=== PATIENT | female | born 1950 | race Caucasian/White ===

== ENCOUNTER 2018-07-12 20:07 | Inpatient (IN) ==
--- NOTE | 2018-07-12 20:25 | ED ---
HPI General Chief Complaint: Extremity Injury, Lower Stated Complaint: Fall Time Seen by Provider: 07/12/18 20:15 Source: patient Mode of arrival: EMS Limitations: no limitations History of Present Illness HPI Narrative: patient had a trip and fall and ended up hitting front of her face without loc, and twisted her right thigh about and since then has had severe pain to her right thigh/hip area. no open cuts. denied loc, no nv, no visual changes..... Major area of pain in his right thigh/right hip. However also complains of pain to her left shoulder as well as her facial/nasal area No known drug allergy however she patient has adverse effect of tachycardia whenever she receives Dilaudid Past medical history significant for hypercholesterolemia depression hypertension COPD on 2-3 L nasal cannula daily Coronary artery stent and IN MD complaint: Reports fall Onset (ago): minute(s) Fall from: standing Fall witnessed: no Place fall occurred: home Loss of consciousness: none Prolonged down time: no Symptoms prior to fall: Reports none Context: Reports tripped/slipped Location of injury: Reports other (greatest pain over right ) Severity scale (1-10): 7 Quality: Reports sharp Associated symptoms (after fall): Reports denies Related Data Allergies Allergy/AdvReac Type Severity Reaction Status Date / Time hydromorphone [From Dilaudid] AdvReac Tachycardia Verified 07/12/18 20:30 Review of Systems ROS: all other systems reviewed are negative PMFSH History History Provided By: Patient Medical History Medical History COPD (chronic obstructive pulmonary disease) (Acute) Depression (Acute) Hypercholesterolemia (Acute) Hypertension (Acute) Myocardial infarction (Acute) Osteoarthritis (Acute) Surgical History Surgical History History of coronary artery stent placement (Acute) Social History Social History Substance History: No History of Abuse Second Hand Smoke Exposure: Yes Smoking Status: Heavy tobacco smoker Tobacco Type: Cigarettes How Often Do You Have a Drink Containing Alcohol: Never Recent Travel in [place] within the Last 8 Weeks: No Recent Out of Country Travel within the Last 8 Weeks: No Exam Narrative Exam Narrative: GENERAL: Obese female patient in moderate pain distress. SKIN: Warm and dry. HEAD: Atraumatic. Normocephalic. EYES: Pupils equal and round. No scleral icterus. No injection or drainage. ENT: No nasal bleeding or discharge. Mucous membranes pink and moist. NECK: Trachea midline. No JVD. CARDIOVASCULAR: Regular rate and rhythm. no rubs or gallops RESPIRATORY: No accessory muscle use. Clear to auscultation. Breath sounds equal bilaterally. GASTROINTESTINAL: Abdomen soft, non-tender, nondistended. No rebound or guarding MUSCULOSKELETAL: Extremities without clubbing, cyanosis, or edema. However the patient has exquisite pain to proximal femur near trochanter. Distal pulses on dorsalis pedis, popliteal and posterior tibial are all within normal limits NEUROLOGICAL: Awake and alert. No obvious cranial nerve deficits. Motor grossly within normal limits. Five out of 5 muscle strength in the arms and legs. Normal speech. PSYCHIATRIC: Appropriate mood and affect; insight and judgment normal. Course Initial Documented Vital Signs Temperature 97.8 F 07/12/18 20:14 Pulse Rate 67 07/12/18 20:14 Respiratory Rate 18 07/12/18 20:14 Blood Pressure 201/93 H 07/12/18 20:14 Pulse Oximetry 93 L 07/12/18 20:14 Last Documented Vital Signs Temperature 97.8 F 07/12/18 20:14 Pulse Rate 67 07/12/18 20:14 Respiratory Rate 18 07/12/18 20:14 Blood Pressure 201/93 H 07/12/18 20:14 Pulse Oximetry 93 L 07/12/18 20:14 Medical Decision Making MDM Narrative Medical decision making narrative: Shoulder x-ray shows a 2 part fracture of the proximal left humerus Pelvis x-ray performed and read by radiologist as proximal right femoral fracture bony pelvic ring is intact Right femur x-ray read by radiologist a spiral and comminuted fracture of the proximal shaft of the femur and displaced fracture of the lesser trochanter Above findings discussed with patient as well as with orthopedics water pollution specialist Leukocytosis 18,000 with 90% neutrophilia, no evidence of any anemia, normal platelet count Coagulation profile is within normal limits Elect lites are within normal limits. Normal kidney liver functions Hyperglycemia 182 noted. Case discussed with orthopedist Dr. Laguna who recommended n.p.o. after midnight, Carreon's traction and left sling placement Medical Screen Exam Complete: Yes Emergency Medical Condition: Yes Lab Data Result diagrams: 07/12/18 21:35 07/12/18 21:35 Lab Results 07/12/18 07/12/18 07/12/18 Range/Units 21:35 21:35 21:35 WBC 18.1 H (4.0-11.0) th/mm3 RBC 4.78 (4.00-5.30) mil/mm3 Hgb 15.4 H (11.6-15.3) gm/dL Hct 41.8 (35.0-46.0) % MCV 87.6 (80.0-100.0) fL MCH 32.2 (27.0-34.0) pg MCHC 36.8 H (32.0-36.0) % RDW 13.8 (11.6-17.2) % Plt Count 241 (150-450) th/mm3 MPV 8.3 (7.0-11.0) fL Prelim Diff (Auto) Slide review pending Neut % (Auto) 90.4 H (16.0-70.0) % Lymph % (Auto) 5.1 L (9.0-44.0) % Becker % (Auto) 3.4 (0.0-8.0) % Eos % (Auto) 0.4 (0.0-4.0) % Baso % (Auto) 0.7 (0.0-2.0) % Neut # (Auto) 16.4 H (1.8-7.7) th/mm3 Lymph # (Auto) 0.9 L (1.0-4.8) th/mm3 Becker # (Auto) 0.6 (0.0-0.9) th/mm3 Eos # (Auto) 0.1 (0.0-0.4) th/mm3 Baso # (Auto) 0.1 (0.0-0.2) th/mm3 Differential Comment . PT 10.9 (9.8-11.6) sec INR 1.1 Ratio APTT 27.5 (23.4-31.7) sec Sodium 136 (136-145) meq/L Potassium 4.0 (3.5-5.1) meq/L Chloride 102 (98-107) meq/L Carbon Dioxide 27.4 (21.0-32.0) meq/L Anion Gap 7 (5-15) meq/L BUN 16 (7-18) mg/dL Creatinine 0.90 (0.50-1.00) mg/dL Estimated GFR 63 L (>89) mL/min Random Glucose 192 H (74-106) mg/dL Calcium 8.3 L (8.5-10.1) mg/dL Total Bilirubin 0.3 (0.2-1.0) mg/dL AST 17 (15-37) U/L ALT 19 (10-53) U/L Alkaline Phosphatase 136 H (45-117) U/L Total Protein 7.4 (6.4-8.2) g/dL Albumin 3.4 (3.4-5.0) g/dL Imaging Data Radiologist's impression: Femur X-Ray 07/12/18 20:15 CONCLUSION: Spiral and comminuted fracture of the proximal shaft of the femur and displaced fracture of the lesser trochanter. Pelvis X-Ray 07/12/18 20:15 CONCLUSION: Proximal right femoral fractures. The bony pelvic ring is intact. Shoulder X-Ray 07/12/18 20:15 CONCLUSION: 2-part fracture of the proximal left humerus. ECG Data EKG Prior to Arrival: No Attestation: I personally reviewed and interpreted this ECG as follows: Prior ECG tracings: not available for review Interpretation: Sinus rhythm 69 bpm, no evidence of any acute ST elevation IN pattern. Discharge Plan Physicians Team ED Provider: Rich Pugh Primary Care Provider: UNKNOWN, Status ED Status: With Doctor
--- NOTE | 2018-07-12 21:23 | XR ---
EXAM DATE: 07/12/2018 9:19 PM EST AGE/SEX: 67 years / Female INDICATIONS: Fall this afternoon. CLINICAL DATA: This is the patient's initial encounter. Patient reports that signs and symptoms have been present for 1 day and indicates a pain score of 10/10. MEDICAL/SURGICAL HISTORY: None. None. COMPARISON: No prior exams available for comparison. FINDINGS: There is a spiral fracture of the proximal shaft of the femur with one shaft width lateral displaceme nt of the distal fracture fragment. Possible associated butterfly fragment. There is also a displaced fracture of the lesser trochanter, displaced medial and superior. The femoral head and neck appear t o be intact. The bony acetabulum is intact. No radiopaque foreign bodies. CONCLUSION: Spiral and comminuted fracture of the proximal shaft of the femur and displaced fracture of the lesse r trochanter. Electronically signed by: Mervin Meadows MD Board Certified Radiologist 07/12/2018 9:22 PM EST
[2018-07-12] MEDS ORDERED: Morphine Sulfate Inj 8 MG/ML Vial IV.PUSH ONE (21:24)
--- NOTE | 2018-07-12 21:24 | XR ---
EXAM DATE: 07/12/2018 9:21 PM EST AGE/SEX: 67 years / Female INDICATIONS: Fall this afternoon. CLINICAL DATA: This is the patient's initial encounter. Patient reports that signs and symptoms have been present for 1 day and indicates a pain score of 10/10. MEDICAL/SURGICAL HISTORY: None. None. COMPARISON: No prior exams available for comparison. FINDINGS: Fractures of the proximal shaft of the femur is partially included in the [id number]. There is als o a displaced fracture of the lesser trochanter, rotated and displaced superiorly. The bony acetabulu m is intact. The left hemipelvis is intact. The arcuate lines of the sacrum or symmetric. CONCLUSION: Proximal right femoral fractures. The bony pelvic ring is intact. Electronically signed by: Mervin Meadows MD Board Certified Radiologist 07/12/2018 9:23 PM EST
--- NOTE | 2018-07-12 21:25 | XR ---
EXAM DATE: 07/12/2018 9:23 PM EST AGE/SEX: 67 years / Female INDICATIONS: Fall this afternoon. CLINICAL DATA: This is the patient's initial encounter. Patient reports that signs and symptoms have been present for 1 day and indicates a pain score of 10/10. MEDICAL/SURGICAL HISTORY: None. None. COMPARISON: No prior exams available for comparison. FINDINGS: There is a proximal humeral fracture with displaced greater tuberosity and possible fracture line thr ough the anatomic neck. The bony acetabulum is intact. The humeral head is in alignment with the andreia oid on the transscapular Y view. AC joint is intact. Visualized left upper ribs are intact. CONCLUSION: 2-part fracture of the proximal left humerus. Electronically signed by: Mervin Meadows MD Board Certified Radiologist 07/12/2018 9:24 PM EST
[2018-07-12] MEDS ORDERED: Sod Chloride 0.9% Inj 1,000 ML IV.CONT SCH (21:30)
[2018-07-12 21:50] LABS: Baso # (Auto) 0.1 th/mm3 (0.0-0.2); Baso % (Auto) 0.7 % (0.0-2.0); Eos # (Auto) 0.1 th/mm3 (0.0-0.4); Eos % (Auto) 0.4 % (0.0-4.0); Hematocrit 41.8 % (35.0-46.0); Hemoglobin 15.4 gm/dL (11.6-15.3); Lymph # (Auto) 0.9 th/mm3 (1.0-4.8); Lymph % (Auto) 5.1 % (9.0-44.0); Mean Corpuscular Hemoglobin 32.2 pg (27.0-34.0); Mean Corpuscular Volume 87.6 fL (80.0-100.0); Mean Platelet Volume 8.3 fL (7.0-11.0); Mono # (Auto) 0.6 th/mm3 (0.0-0.9); Mono % (Auto) 3.4 % (0.0-8.0); Neut # (Auto) 16.4 th/mm3 (1.8-7.7); Neut % (Auto) 90.4 % (16.0-70.0); Platelet Count 241 th/mm3 (150-450); Red Blood Count 4.78 mil/mm3 (4.00-5.30); Red Cell Distribution Width 13.8 % (11.6-17.2); White Blood Count 18.1 th/mm3 (4.0-11.0)
[2018-07-12 21:55] LABS: Mean Corpuscular HGB Conc 36.8 % (32.0-36.0)
[2018-07-12 22:01] LABS: Activated Partial Thrombo Time 27.5 sec (23.4-31.7); INR 1.1 Ratio; Prothrombin Time 10.9 sec (9.8-11.6)
[2018-07-12 22:06] LABS: Albumin 3.4 g/dL (3.4-5.0); Anion Gap 7 meq/L (5-15); Aspartate Aminotransferase 17 U/L (15-37); Blood Urea Nitrogen 16 mg/dL (7-18); Calcium 8.3 mg/dL (8.5-10.1); Carbon Dioxide 27.4 meq/L (21.0-32.0); Chloride 102 meq/L (98-107); Glomerular Filtration Rate 63 mL/min (>89); Glucose,Random 192 mg/dL (74-106); Sodium 136 meq/L (136-145)
[2018-07-12 22:08] LABS: Alanine Aminotransferase 19 U/L (10-53)
[2018-07-12 22:10] LABS: Alkaline Phosphatase 136 U/L (45-117); Total Protein 7.4 g/dL (6.4-8.2)
[2018-07-12 22:38] LABS: Lymphocytes 2 % (9-44); Monocytes 2 % (0-8); Tallied Nucleated RBC 1 (0-0)
[2018-07-12 22:39] LABS: Platelet Estimate Normal (Normal); Platelet Morphology Normal (Normal); Toxic Granulation 1+
[2018-07-12] MEDS ORDERED: Bisacodyl 10 MG Supp RECTAL PRN (23:17)
[2018-07-12] MEDS ORDERED: Acetaminophen 325 MG Tablet PO PRN (23:17)
--- NOTE | 2018-07-12 23:28 | P.HPIM ---
History of Present Illness Primary Care Physician: UNKNOWN 67-year-old female with past medical history significant for coronary artery disease status post stent placement, hypertension, hyperlipidemia, COPD on 2 L nasal cannula as needed, history of lung cancer and osteoarthritis presents to the emergency department after suffering a mechanical fall. The patient reports that she slipped on 1 of her slippers and landed on the tile floor. She hit her nose but denies any other head trauma or loss of consciousness. She denies any chest pain or shortness of breath. No nausea/vomiting/diarrhea. No abdominal pain. No focal neurologic deficits. No fever/chills. Inpatient Certification Inpatient Certification: I certify that the inpatient services were ordered in accordance with Medicare regulations governing the order. This includes certification that hospital inpatient services are reasonable and necessary and in the case of services not specified as inpatient-only under 42 CFR 419.22(n), that they are appropriately provided as inpatient services in accordance to with the 2-midnight benchmark under 43 CFR 412.3(e) Estimated Total Length of Stay (Days): 3 Plans for Post Hospital Care: Not yet determined Review of Systems Review of Systems: all other systems reviewed are negative [facility] Medical History Medical History COPD (chronic obstructive pulmonary disease) (Acute) Depression (Acute) History of hysterectomy (Acute) Hypercholesterolemia (Acute) Hypertension (Acute) Myocardial infarction (Acute) Osteoarthritis (Acute) Surgical History Surgical History History of appendectomy (Acute) History of cholecystectomy (Acute) History of coronary artery stent placement (Acute) History of coronary artery stent placement (Acute) History of lobectomy of lung (Acute) Family History Family History Other CVA (cerebral vascular accident) Social History Social History Substance History: No History of Abuse Second Hand Smoke Exposure: Yes Smoking Status: Heavy tobacco smoker Tobacco Type: Cigarettes How Often Do You Have a Drink Containing Alcohol: Never Recent Travel in [facility] within the Last 8 Weeks: No Recent Out of Country Travel within the Last 8 Weeks: No Immunization History Tetanus Immunization: Unsure Medications and Allergies Allergies Allergy/AdvReac Type Severity Reaction Status Date / Time hydromorphone [From Dilaudid] AdvReac Tachycardia Verified 07/12/18 20:30 Active Medications: Active Medications Acetaminophen (Tylenol) 650 mg PO Q4H PRN PRN Reason: Temp > 100.4 Al Hydroxide/Mg Hydroxide (Milk Of Magnesia Liq) 30 ml PO Q12H PRN PRN Reason: Mild Constipation Bisacodyl (Dulcolax Supp) 10 mg RECTAL DAILY PRN PRN Reason: SEVERE CONSITIPATION Sodium Chloride (Ns Inj) 1,000 mls @ 125 mls/hr IV.CONT .Q8H JJ Stop: 07/13/18 05:29 Last Admin: 07/12/18 21:58 Dose: 125 mls/hr Sodium Chloride (Ns Inj) 1,000 mls @ 100 mls/hr IV.CONT .Q10H [facility] Lactulose (Lactulose Liq) 30 ml PO DAILY PRN PRN Reason: SEVERE CONSITIPATION Morphine Sulfate (Morphine Inj) 4 mg IV.PUSH Q4H PRN PRN Reason: PAIN SCALE 6 TO 10 Ondansetron HCl (Zofran Inj) 4 mg IV.PUSH Q6H PRN PRN Reason: NAUSEA OR VOMITING Senna/Docusate Sodium (Rocio-Colace) 1 tab PO BID [facility] Sennosides (Senokot) 17.2 mg PO Q12H PRN PRN Reason: Moderate Constipation Sodium Chloride (Ns Flush) 2 ml IV.FLUSH BID [facility] Sodium Chloride (Ns Flush) 2 ml IV.FLUSH PRN PRN PRN Reason: FLUSH AFTER USING IV ACCESS Physical Exam Vital signs: Vital Signs 07/12/18 20:14 Temperature 97.8 F Pulse Rate 67 Respiratory Rate 18 Blood Pressure 201/93 H Pulse Oximetry 93 L Intake & Output 07/12/18 07/12/18 07/13/18 06:59 18:59 06:59 Weight 127.006 kg Narrative: Gen.: No acute distress Head: Normocephalic. Atraumatic. EENT: Pupils equal round and reactive to light. Nose without drainage. Airway intact. Throat without injection. Cardiovascular: Regular rate and rhythm. No murmurs, rubs or gallops. Respiratory: Lungs clear to auscultation bilaterally. No wheezes or rhonchi. Abdomen: Soft, nontender, nondistended. No peritoneal signs. Musculoskeletal: Right lower extremity neurovascularly intact. Skin: No obvious rashes or erythema. Neuro: Sensory and motor grossly intact. Cranial nerves II through XII grossly intact. Results Labs CBC & Chem 7: 07/12/18 21:35 07/12/18 21:35 Imaging Impressions Femur X-Ray 07/12/18 20:15 CONCLUSION: Spiral and comminuted fracture of the proximal shaft of the femur and displaced fracture of the lesser trochanter. Pelvis X-Ray 07/12/18 20:15 CONCLUSION: Proximal right femoral fractures. The bony pelvic ring is intact. Shoulder X-Ray 07/12/18 20:15 CONCLUSION: 2-part fracture of the proximal left humerus. Caprini VTE Risk Assessment Caprini VTE Risk Assessment: Moderate/High Risk (score >= 2) Caprini Risk Assessment Model: Point Value = 1 Point Value = 2 Point Value = 3 Point Value = 5 Age 41-60 Minor surgery BMI > 25 kg/m2 Swollen legs Varicose veins or History of unexplained or recurrent spontaneous Oral contraceptives or hormone replacement Sepsis (< 1 month) Serious lung disease, including pneumonia (< 1 month) Abnormal pulmonary function Acute myocardial infarction Congestive heart failure (< 1 month) History of inflammatory bowel disease Medical patient at bed rest Age 61-74 Arthroscopic surgery Major open surgery (> 45 min) Laparoscopic surgery (> 45 min) Malignancy Confined to bed (> 72 hours) Immobilizing plaster cast Central venous access Age >= 75 History of VTE Family history of VTE Factor V Leiden Prothrombin [id number] Lupus anticoagulant Anticardiolipin antibodies Elevated serum homocysteine Heparin-induced thrombocytopenia Other congenital or acquired thrombophilia Stroke (< 1 month) Elective arthroplasty Hip, pelvis, or leg fracture Acute spinal cord injury (< 1 month) Prophylaxis Regimen: Total Risk Factor Score Risk Level Prophylaxis Regimen 0-1 Low Early ambulation 2 Moderate Order ONE of the following: *Sequential Compression Device (SCD) *Heparin 5000 units SQ BID 3-4 Higher Order ONE of the following medications: *Heparin 5000 units SQ TID *Enoxaparin/Lovenox 40 mg SQ daily (WT < 150 kg, CrCl > 30 mL/min) *Enoxaparin/Lovenox 30 mg SQ daily (WT < 150 kg, CrCl > 10-29 mL/min) *Enoxaparin/Lovenox 30 mg SQ BID (WT < 150 kg, CrCl > 30 mL/min) AND/OR *Sequential Compression Device (SCD) 5 or more Highest Order ONE of the following medications: *Heparin 5000 units SQ TID (Preferred with Epidurals) *Enoxaparin/Lovenox 40 mg SQ daily (WT < 150 kg, CrCl > 30 mL/min) *Enoxaparin/Lovenox 30 mg SQ daily (WT < 150 kg, CrCl > 10-29 mL/min) *Enoxaparin/Lovenox 30 mg SQ BID (WT < 150 kg, CrCl > 30 mL/min) AND *Sequential Compression Device (SCD) Assessment and Plan Plan Assessment/plan: 1. Femur/hip fracture X-ray significant for spiral and comminuted fracture of the proximal shaft of the femur and displaced fracture of the lesser trochanter Orthopedic surgery consulted, appreciate assistance 2. Left humerus fracture X-ray shows 2 part fracture of the proximal left humerus Orthopedic surgery consulted as above Morphine for pain 3. COPD Patient uses 2 L supplemental oxygen as needed at home Duo nebs Maintain oxygen saturations between 88-92% 4. Coronary artery diseasehypertension/hyperlipidemia Continue home medications once reconciled FEN N.p.o. NS at 100 cc/hour Electrolytes: Monitor and replete as needed Holding pharmacologic anticoagulation for operative intervention
--- NOTE | 2018-07-12 23:46 | CT ---
EXAM DATE: 07/12/2018 11:28 PM EST AGE/SEX: 67 years / Female INDICATIONS: Trauma; fall. CLINICAL DATA: This is the patient's initial encounter. Patient reports that signs and symptoms have been present for 1 day and indicates a pain score of 6/10. MEDICAL/SURGICAL HISTORY: None. None. RADIATION DOSE: 53.90 CTDI (mGy) COMPARISON: No prior exams available for comparison. TECHNIQUE: CT of the head without contrast. Using automated exposure control and adjustment of the mA and/or kV according to patient size, radiation dose was kept as low as reasonably achievable to ob tain optimal diagnostic quality images. DICOM format image data is available electronically for revi ew and comparison. FINDINGS: Patchy deep white matter hypodensity which appears chronic and benign. No evidence of intracranial he morrhage or mass. Nothing to suggest acute infarction. Ventricles are symmetric and normal. Nasal bon e fracture noted with some blood in the sinuses. No evidence of calvarial fracture. CONCLUSION: No acute intracranial injury . Electronically signed by: Alen Arredondo MD Board Certified Radiologist 07/12/2018 11:45 PM EST
--- NOTE | 2018-07-12 23:53 | CT ---
EXAM DATE: 07/12/2018 11:29 PM EST AGE/SEX: 67 years / Female INDICATIONS: Trauma; fall. Facial injury. CLINICAL DATA: This is the patient's initial encounter. Patient reports that signs and symptoms have been present for 1 day and indicates a pain score of 6/10. MEDICAL/SURGICAL HISTORY: None. None. RADIATION DOSE: 33.09 CTDI (mGy) COMPARISON: No prior exams available for comparison. TECHNIQUE: Contiguous images in the axial and coronal planes were obtained using helical multirow de tector technique. Using automated exposure control and adjustment of the mA and/or kV according to p atient size, radiation dose was kept as low as reasonably achievable to obtain optimal diagnostic zoran lity images. DICOM format image data is available electronically for review and comparison. FINDINGS: Mildly angulated fracture of the nasal bone. Slight buckling of the anterior nasal septum. Maxillary spine is intact. Orbits are symmetric and intact. Zygomatic arches are intact. The mandible and tempo romandibular joints are intact. There is blood in occasional ethmoid air cells and right sphenoid sin us. The mastoids and middle ear cavities are clear. CONCLUSION: Nasal bone and nasal septal fractures. Electronically signed by: Alen Arredondo MD Board Certified Radiologist 07/12/2018 11:52 PM EST
[2018-07-13] MEDS: Sod Chloride 0.9% Inj 1,000 ML IV.CONT SCH ×2 (00:51→10:05)
[2018-07-13] MEDS: Morphine Inj 4 MG/ML Vial IV.PUSH PRN ×2 (01:24→08:25)
[2018-07-13] MEDS ORDERED: Chlorhexidine Gluconate 2% 1 Pack (2 Cloths) TOPICAL ONE (01:43)
[2018-07-13] MEDS ORDERED: Sodium Chlor 0.9% Inj 500 ML IV.SIG SCH (02:00)
--- NOTE | 2018-07-13 07:24 | P.CONOP ---
[facility] Orthopedics Consult Note - [facility] Consult date: 07/13/18 Chief complaint: Proximal Right Femur Fracture, Left 2 Part Humeral Narrative: Patient is a 67-year-old female. She had a fall at home. She describes a mechanical fall. She landed on a tile floor. She did hit her face. She denies dizziness, syncope, or loss of consciousness. She complains of severe right hip pain. She also has left shoulder pain. She is currently awake and alert on the orthopedic floor. Pain is worse with movement of her shoulder or hip. Pain is improved with rest. She has a past medical history significant for coronary artery disease status post stent placement, hypertension, hyperlipidemia, COPD on 2 L oxygen, history of lung cancer and osteoarthritis. Review of Systems Patient denies fevers, chills, weight loss, headache, visual changes, hearing loss, chest pain, palpitations, nausea, vomiting, no urinary changes, diarrhea, bowel changes, neck pain, back pain, skin rashes, weakness of extremities, easy bleeding, enlarged lymph nodes, numbness of extremities, anxiety, or depression. She complains of left shoulder pain, right hip pain. She has chronic shortness of breath. Patient's social history, past medical history, and family history were reviewed on chart and with patient. [facility] - History History Provided By: Patient - Medical History Medical History: Medical History (Last Reviewed 07/13/18 @ 07:21 by Tate Segura MD) COPD (chronic obstructive pulmonary disease) Depression History of hysterectomy Hypercholesterolemia Hypertension Lung cancer Myocardial infarction Osteoarthritis - Surgical History Surgical History: Surgical History (Last Reviewed 07/13/18 @ 07:21 by Tate Segura MD) History of appendectomy History of cholecystectomy History of coronary artery stent placement History of coronary artery stent placement History of lobectomy of lung - Family History Family History: Family History (Last Reviewed 07/13/18 @ 07:21 by Tate Segura MD) Other CVA (cerebral vascular accident) - Social History I have reviewed the patient's Social History: Yes - Tobacco History Second Hand Smoke Exposure: Yes Tobacco Use In Past 30 Days: Yes Smoking Status: Current every day smoker Tobacco Type: Cigarettes - Alcohol History How Often Do You Have a Drink Containing Alcohol: Never - Substance Use History Substance History: No History of Abuse - Travel History Recent Travel in the [place] Within the Last 8 Weeks: No Recent Travel Out of the Country Within the Last 8 Weeks: No - Immunization History Tetanus Immunization: >5 Years Hx Influenza Vaccine This Season: Yes Medications and Allergies Active Medications: Active Medications Acetaminophen (Tylenol) 650 mg PO Q4H PRN PRN Reason: Temp > 100.4 Al Hydroxide/Mg Hydroxide (Milk Of Magnesia Liq) 30 ml PO Q12H PRN PRN Reason: Mild Constipation Albuterol (Duoneb Neb (Prn)) 1 ampul NEB Q4HR NEB PRN PRN Reason: SOB/Wheezing Bisacodyl (Dulcolax Supp) 10 mg RECTAL DAILY PRN PRN Reason: SEVERE CONSITIPATION Sodium Chloride (Ns Inj) 1,000 mls @ 100 mls/hr IV.CONT .Q10H [facility] Last Admin: 07/13/18 00:51 Dose: 100 mls/hr Lactated Ringer's (Lr 1000 Ml Inj) 1,000 mls @ 30 mls/hr IV.SIG .Q24H [facility] Stop: 07/14/18 01:44 Sodium Chloride (Ns Inj) 500 mls @ 30 mls/hr IV.SIG .Q10H [facility] Last Admin: 07/13/18 02:22 Dose: Not Given Lactulose (Lactulose Liq) 30 ml PO DAILY PRN PRN Reason: SEVERE CONSITIPATION Morphine Sulfate (Morphine Inj) 4 mg IV.PUSH Q4H PRN PRN Reason: PAIN SCALE 6 TO 10 Last Admin: 07/13/18 01:24 Dose: 4 mg Ondansetron HCl (Zofran Inj) 4 mg IV.PUSH Q6H PRN PRN Reason: NAUSEA OR VOMITING Last Admin: 07/13/18 01:24 Dose: 4 mg Senna/Docusate Sodium (Rocio-Colace) 1 tab PO BID [facility] Sennosides (Senokot) 17.2 mg PO Q12H PRN PRN Reason: Moderate Constipation Sodium Chloride (Ns Flush) 2 ml IV.FLUSH BID [facility] Sodium Chloride (Ns Flush) 2 ml IV.FLUSH PRN PRN PRN Reason: FLUSH AFTER USING IV ACCESS Allergies Allergy/AdvReac Type Severity Reaction Status Date / Time hydromorphone [From Dilaudid] AdvReac Tachycardia Verified 07/12/18 20:30 Home Medications Medication Instructions Recorded Confirmed Type albuterol sulfate 0.63 mg INHALATION QID 07/13/18 07/13/18 History aspirin 325 mg PO DAILY 07/13/18 07/13/18 History bupropion HCl [Wellbutrin XL] 300 mg PO HS 07/13/18 07/13/18 History fluoxetine [Prozac] 20 mg PO DAILY 07/13/18 07/13/18 History gabapentin 100 mg PO TID 07/13/18 07/13/18 History ibuprofen [Advil] 400 mg PO BID PRN 07/13/18 07/13/18 History Exam Vital signs: Vital Signs 07/12/18 20:14 07/12/18 23:51 07/13/18 00:50 Temperature 97.8 F 97.3 F L Pulse Rate 67 70 67 Respiratory Rate 18 18 18 Blood Pressure 201/93 H 146/78 H 173/74 H Pulse Oximetry 93 L 93 L 92 L 07/13/18 00:55 07/13/18 04:50 Temperature 98.0 F Pulse Rate 75 Respiratory Rate 18 Blood Pressure 116/60 Pulse Oximetry 92 L 92 L Intake & Output 07/12/18 07/13/18 07/13/18 18:59 06:59 18:59 Intake Total 1000 / 1000 Balance 1000 / 1000 Weight 127.1 kg Intake: IV 1000 / 1000 NS Inj 1,000 ML @ 125 mls/hr IV 1000 / 1000 .CONT .Q8H [facility] Rx#:[id number] Oral 0 / 0 Other: Date of Last Bowel Movement 07/12/18 # Bowel Movements 0 Weight On Admission 127.1 kg Narrative: Chelsi is a 67-year-old female. General: Awake and alert. No acute distress. Appears well-developed well- nourished Head: Normocephalic, atraumatic pupils are equal Neck: Soft, nontender, trachea midline Abdomen: Soft, nondistended Examination of right arm reveals no pain or deformity with shoulder, elbow, or wrist motion. Skin is intact. Radial pulse is palpable. Normal capillary refill in fingers. Sensation is intact in radial, ulnar, and median nerve distributions. [place] strength is +5. No lymphadenopathy noted. Examination of left arm reveals no pain or deformity with elbow, or wrist motion. She has mild swelling around her shoulder. She has pain with any shoulder motion. Skin is intact. Radial pulse is palpable. Normal capillary refill in fingers. Sensation is intact in radial, ulnar, and median nerve distributions. [place] strength is +5. No lymphadenopathy noted. Examination of left lower extremity reveals no pain or deformity with hip, knee , or ankle motion. Skin is intact. Dorsalis pedis pulse is palpable. Normal capillary refill and feet. Thigh and calf compartments are soft. No lymphadenopathy noted. +5 strength of ankle dorsiflexion and plantarflexion. Sensation is intact in left foot. Examination of right lower extremity reveals pain with any attempted hip or any movement. She is very tender to palpation around the proximal thigh. Skin is intact. Dorsalis pedis pulse is palpable. Normal capillary refill and feet. Thigh and calf compartments are soft. No lymphadenopathy noted. Sensation is intact in right foot. Results - Labs Result Diagrams: 07/12/18 21:35 07/12/18 21:35 Labs: Laboratory Results - last 24 hr 07/12/18 07/12/18 07/12/18 21:35 21:35 21:35 WBC 18.1 H RBC 4.78 Hgb 15.4 H Hct 41.8 MCV 87.6 MCH 32.2 MCHC 36.8 H RDW 13.8 Plt Count 241 MPV 8.3 Prelim Diff (Auto) Slide review pending Neut % (Auto) 90.4 H Lymph % (Auto) 5.1 L [place] % (Auto) 3.4 Eos % (Auto) 0.4 Baso % (Auto) 0.7 Neut # (Auto) 16.4 H Lymph # (Auto) 0.9 L [place] # (Auto) 0.6 Eos # (Auto) 0.1 Baso # (Auto) 0.1 WBC Differential Manual diff final Seg Neuts % (Manual) 91 H Band Neuts % (Manual) 4 Lymphocytes % (Manual) 2 L Monocytes % (Manual) 2 Basophils % (Manual) 1 Abs Neuts (Manual) 17.2 H Nucleated RBCs/100 WBC 1 H Differential Comment . Toxic Granulation 1+ H Platelet Estimate Normal Platelet Morphology Normal PT 10.9 INR 1.1 APTT 27.5 Sodium 136 Potassium 4.0 Chloride 102 Carbon Dioxide 27.4 Anion Gap 7 BUN 16 Creatinine 0.90 Estimated GFR 63 L Random Glucose 192 H Calcium 8.3 L Total Bilirubin 0.3 AST 17 ALT 19 Alkaline Phosphatase 136 H Total Protein 7.4 Albumin 3.4 - Diagnostic results Imaging: Impressions Femur X-Ray 07/12/18 20:15 CONCLUSION: Spiral and comminuted fracture of the proximal shaft of the femur and displaced fracture of the lesser trochanter. Head CT 07/12/18 20:15 CONCLUSION: No acute intracranial injury . Pelvis X-Ray 07/12/18 20:15 CONCLUSION: Proximal right femoral fractures. The bony pelvic ring is intact. Shoulder X-Ray 07/12/18 20:15 CONCLUSION: 2-part fracture of the proximal left humerus. Face CT 07/12/18 20:19 CONCLUSION: Nasal bone and nasal septal fractures. Shoulder x-ray: report reviewed, image reviewed Hip x-ray: report reviewed, image reviewed Assessment and Plan - Assessment and Plan Chelsi had a fall resulting in multiple injuries including left proximal humerus fracture and right subtrochanteric femur fracture. X-rays of shoulder and femur were reviewed. Treatment options were discussed with her. At this point I would recommend right hip reduction and intramedullary harjeet fixation. I discussed treatment options of her shoulder as well. I discussed surgical and nonsurgical options. Fracture does have mild displacement. I discussed the risk and benefits of open reduction internal fixation and conservative treatment. She would prefer to avoid surgery on her shoulder if possible. I feel this is a reasonable choice. She states that she is not overly concerned about range of motion of her shoulder. 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 The fracture displaces further, surgical intervention may become necessary. The risk and benefits of surgery were discussed in depth with patient. The risk of surgery include bleeding, infection, injuries to arteries, nerves, or blood vessels, infection, wound complications, nonunion, malunion, painful hardware, and need for further surgery. I also discussed medical complications including blood clots, pneumonia, stroke, heart attack, and . Informed consent was obtained and all questions were answered. N.p.o.--plan on surgery this morning Calcium and vitamin D supplementation Physical therapy consult--nonweightbearing left arm Follow-up with Dr. Segura in 2 weeks JAZ Green Lovenox A mid-level provider in my office (nurse practitioner or physician assistant county attorney) may see this patient on follow-up visits and continue to implement the objectives of this plan including: Starting or adjusting medications, injections , cast application, orthotics, brace application, physical therapy, radiological studies (including x-ray, MRI, CT, ultrasound, bone scan), vascular studies, neurologic studies, specialist consultation, and proceeding with surgical management, as appropriate.
[2018-07-13 08:17] LABS: Baso % (Auto) 0.2 % (0.0-2.0); Hematocrit 41.1 % (35.0-46.0); Lymph # (Auto) 0.6 th/mm3 (1.0-4.8); Mean Corpuscular HGB Conc 34.1 % (32.0-36.0); Mean Corpuscular Hemoglobin 30.2 pg (27.0-34.0); Mean Corpuscular Volume 88.5 fL (80.0-100.0); Mean Platelet Volume 8.3 fL (7.0-11.0); Mono # (Auto) 0.9 th/mm3 (0.0-0.9); Mono % (Auto) 6.1 % (0.0-8.0); Neut # (Auto) 13.1 th/mm3 (1.8-7.7); Neut % (Auto) 89.7 % (16.0-70.0); Platelet Count 242 th/mm3 (150-450); Red Blood Count 4.64 mil/mm3 (4.00-5.30); Red Cell Distribution Width 13.8 % (11.6-17.2); White Blood Count 14.6 th/mm3 (4.0-11.0)
[2018-07-13 08:37] LABS: Calcium 8.2 mg/dL (8.5-10.1); Potassium 4.4 meq/L (3.5-5.1)
[2018-07-13] MEDS: Senna/Docusate Sodium 8.6/50 MG Tablet PO SCH ×2 (08:52→22:28)
[2018-07-13] MEDS: Gabapentin 100 MG Capsule PO SCH ×3 (10:12→17:00)
[2018-07-13] MEDS ORDERED: Bupivacaine/Epinephrine Inj 0.25% 50 ML Vial ONE (10:32)
[2018-07-13] MEDS ORDERED: Phenylephrine/NS 1000 MCG/10ML Syringe IV.PUSH ONE (12:06)
[2018-07-13] MEDS ORDERED: Sodium Chlor 0.9% Inj 250 ML IV.CONT ONE (12:06)
[2018-07-13] MEDS ORDERED: Lidocaine PF 1% Inj 5 ML Syringe INFILTRATN ONE (12:06)
[2018-07-13] MEDS ORDERED: Post-op Orders (for Pharmacy) OTHER STA (13:24)
--- NOTE | 2018-07-13 13:28 | P.OP ---
- Preoperative Diagnosis (1) Fracture, subtrochanteric, right femur, closed Date of procedure: 07/13/18 Procedure: Right femur reduction with intramedullary nail fixation Anesthesia: GETA Surgeon: Tate Segura MD Lump Room Supervisor: KELLI De PA-C The surgical procedure was assisted by my physician payroll and benefits assistant. My P.A. presence was necessary throughout this case for the manipulation and positioning of the surgical extremity. My P.A. was assisting me throughout the duration of this procedure. The skill set of a physician payroll and benefits assistant was medically necessary to complete this procedure. During the surgical case the surgical dressing maker was working at the back table and the physician payroll and benefits assistant was directly assisting me. Operation and Findings: Implants used: 13 mm x 380 mm Biomet troch nail Plan of activity: 50% weightbearing right leg, nonweightbearing left arm Details of procedure: Patient was seen and evaluated preoperatively. The patient has significant hip pain from proximal right femur fracture. The risk and benefits of surgery were discussed in depth with the patient to include bleeding, infection, nonunion, malunion, need for hip replacement, painful hardware, as well as medical competitions including blood clots, stroke, heart attack, and . Informed consent was obtained. Operative site was marked. Patient was brought to the operating room and placed on fracture table. IV sedation was administered by anesthesiologist. Timeout procedure was performed. Hip and leg were prepped with alcohol followed by DuraPrep and draped in the usual sterile fashion. IV antibiotics were given prior to incision. Procedure began with reduction of fracture. Traction was applied. The leg was manipulated to achieve reduction. Excellent reduction was achieved. Fluoroscopy was used to confirm reduction. A three inch incision was made proximal to the trochanter. Subcutaneous tissue was dissected bluntly. Guidepin was placed at the tip of the trochanter and advanced into the femoral canal. Fluoroscopy confirmed appropriate guidepin placement. A opening reamer was placed over the guidepin. A long ball tipped guide pin was now placed down the femoral canal into the center of the distal femur. The nail length was now measured. Fluoroscopy confirmed appropriate guidepin placement. Flexible reamers were now passed over the guidepin to ream the intramedullary canal. The nail was attached to the insertion handle. Nail was now placed over the guidepin into the femoral canal. Fluoroscopy confirmed appropriate nail placement. A second incision was made over the lateral thigh. Cannulas were placed through the insertion handle down to the femur. Guidepin was now placed through the femoral nail into the center of the femoral head. Fluoroscopy confirmed appropriate guidepin placement. Screw length was measured. Cannulated drill was placed over the guidepin. Appropriate length lag screw was now placed. Traction was released and compression was applied. The set screw was now tightened in static mode. Next, using perfect [place] technique two distal interlocking screws were placed. Screw holes were predrilled and screw lengths were measured. Final fluoroscopy revealed well aligned fracture with well-placed hardware. Incision was closed with 3-0 Vicryl and naren. Sterile dressings were applied. Patient was awakened and transferred to recovery room.
[2018-07-13] MEDS ORDERED: fentaNYL Citrate Inj 100 MCG/2 ML Ampul ONE (13:48)
--- NOTE | 2018-07-13 14:34 | P.PNOP ---
Subjective Interval history: Transferred to PACU in stable condition Physical Exam Vital signs: Vital Signs 07/12/18 20:14 07/12/18 23:51 07/13/18 00:50 Temperature 97.8 F 97.3 F L Pulse Rate 67 70 67 Respiratory Rate 18 18 18 Blood Pressure 201/93 H 146/78 H 173/74 H Pulse Oximetry 93 L 93 L 92 L 07/13/18 00:55 07/13/18 04:50 07/13/18 08:00 Temperature 98.0 F 98.4 F Pulse Rate 75 86 Respiratory Rate 18 20 Blood Pressure 116/60 130/60 Pulse Oximetry 92 L 92 L 93 L 07/13/18 08:18 07/13/18 08:27 Temperature Pulse Rate 82 Respiratory Rate 22 20 Blood Pressure Pulse Oximetry 91 L Intake & Output 07/12/18 07/13/18 07/13/18 18:59 06:59 18:59 Intake Total 1000 / 1000 300 / 300 Output Total 75 / 75 Balance 1000 / 1000 225 / 225 Weight 127.1 kg Intake: IV 1000 / 1000 NS Inj 1,000 ML @ 125 mls/hr IV 1000 / 1000 .CONT .Q8H [facility] Rx#:[id number] Oral 0 / 0 Anesthesia Amount 300 / 300 Output: Estimated Blood Loss 75 / 75 Other: Date of Last Bowel Movement 07/12/18 07/12/18 # Bowel Movements 0 Weight On Admission 127.1 kg Narrative: Left upper extremity: Sling and swath applied. Intact distal pulses and good capillary refill Right lower extremity: Clean dry dressings intact. Intact distal pulses and good capillary refill Results - Labs CBC & Chem 7: 07/13/18 07:46 07/13/18 07:46 Laboratory Results - last 24 hr 07/12/18 07/12/18 07/12/18 21:35 21:35 21:35 WBC 18.1 H RBC 4.78 Hgb 15.4 H Hct 41.8 MCV 87.6 MCH 32.2 MCHC 36.8 H RDW 13.8 Plt Count 241 MPV 8.3 Prelim Diff (Auto) Slide review pending Neut % (Auto) 90.4 H Lymph % (Auto) 5.1 L [place] % (Auto) 3.4 Eos % (Auto) 0.4 Baso % (Auto) 0.7 Neut # (Auto) 16.4 H Lymph # (Auto) 0.9 L [place] # (Auto) 0.6 Eos # (Auto) 0.1 Baso # (Auto) 0.1 WBC Differential Manual diff final Seg Neuts % (Manual) 91 H Band Neuts % (Manual) 4 Lymphocytes % (Manual) 2 L Monocytes % (Manual) 2 Basophils % (Manual) 1 Abs Neuts (Manual) 17.2 H Nucleated RBCs/100 WBC 1 H Differential Comment . Toxic Granulation 1+ H Platelet Estimate Normal Platelet Morphology Normal PT 10.9 INR 1.1 APTT 27.5 Sodium 136 Potassium 4.0 Chloride 102 Carbon Dioxide 27.4 Anion Gap 7 BUN 16 Creatinine 0.90 Estimated GFR 63 L Random Glucose 192 H Calcium 8.3 L Total Bilirubin 0.3 AST 17 ALT 19 Alkaline Phosphatase 136 H Total Protein 7.4 Albumin 3.4 Blood Type Blood Type Recheck Antibody Screen 07/13/18 07/13/18 07/13/18 07:46 07:46 07:46 WBC 14.6 H RBC 4.64 Hgb 14.0 Hct 41.1 MCV 88.5 MCH 30.2 MCHC 34.1 RDW 13.8 Plt Count 242 MPV 8.3 Prelim Diff (Auto) Neut % (Auto) 89.7 H Lymph % (Auto) 4.0 L [place] % (Auto) 6.1 Eos % (Auto) 0.0 Baso % (Auto) 0.2 Neut # (Auto) 13.1 H Lymph # (Auto) 0.6 L [place] # (Auto) 0.9 Eos # (Auto) 0.0 Baso # (Auto) 0.0 WBC Differential . Seg Neuts % (Manual) Band Neuts % (Manual) Lymphocytes % (Manual) Monocytes % (Manual) Basophils % (Manual) Abs Neuts (Manual) Nucleated RBCs/100 WBC Differential Comment Auto diff final Toxic Granulation Platelet Estimate Platelet Morphology PT INR APTT Sodium 140 Potassium 4.4 Chloride 104 Carbon Dioxide 30.0 Anion Gap 6 BUN 16 Creatinine 0.86 Estimated GFR 66 L Random Glucose 139 H Calcium 8.2 L Total Bilirubin AST ALT Alkaline Phosphatase Total Protein Albumin Blood Type O Negative Blood Type Recheck Required Antibody Screen Negative - Imaging Impressions Femur X-Ray 07/12/18 20:15 CONCLUSION: Spiral and comminuted fracture of the proximal shaft of the femur and displaced fracture of the lesser trochanter. Head CT 07/12/18 20:15 CONCLUSION: No acute intracranial injury . Pelvis X-Ray 07/12/18 20:15 CONCLUSION: Proximal right femoral fractures. The bony pelvic ring is intact. Shoulder X-Ray 07/12/18 20:15 CONCLUSION: 2-part fracture of the proximal left humerus. Face CT 07/12/18 20:19 CONCLUSION: Nasal bone and nasal septal fractures. Assessment and Plan - Assessment and Plan Right subtrochanteric femur fracture status post IM nail POD #0 Physical therapy 50% weightbearing on the right lower extremity Begin daily dressing changes POD 2 with Xeroform and [place]. If significant drainage use Xeroform 4 x 4's ABD and paper tape. Left proximal humerus fracture Nonoperative treatment at this time. She will continue to remain in sling and swath at all times. No range of motion We will re-x-ray in 7-14 days to reevaluate continued alignment of the fracture Lovenox while in the hospital for DVT prophylaxis then convert to Xarelto at discharge Incentive spirometry SCDs and JAZ gonzalez Case management for rehab placement [place] and Xarelto are printed and on chart Follow-up appointment with Dr. Lee or PA in 2 weeks
--- NOTE | 2018-07-13 14:36 | ECG ---
Date Performed: 07/12/2018 Time Performed: 20:24:19 PTAGE: 67 years EKG: Sinus rhythm SEPTAL MYOCARDIAL INFARCTION ABNORMAL ECG NO PREVIOUS TRACING DOCTOR: Eva Elias Interpretating Date/Time 07/13/2018 14:31:45
--- NOTE | 2018-07-13 14:59 | XR ---
EXAM DATE: 07/13/2018 2:55 PM EST AGE/SEX: 67 years / Female INDICATIONS: Wheezing. CLINICAL DATA: This is the patient's initial encounter. Patient reports that signs and symptoms have been present for 1 day and indicates a pain score of Nonresponsive. MEDICAL/SURGICAL HISTORY: None. None. COMPARISON: [facility], XR CHEST PA AND LAT, 12/28/2015. . FINDINGS: There is increased prominence of the pulmonary vasculature bilaterally. No focal parenchymal infiltra abhilash are demonstrated. The heart size is mildly enlarged but stable compared to the prior study. No de finite pleural effusions are demonstrated. The bony structures are grossly intact. CONCLUSION: Pulmonary venous congestion. Electronically signed by: River Navarro MD Board Certified Radiologist 07/13/2018 2:58 PM EST
[2018-07-13] MEDS: Calcium/Vitamin D 250/125 MG Tablet PO SCH (17:00)
--- NOTE | 2018-07-13 17:39 | P.PNIM ---
Subjective Interval history: Patient is seen lying in bed after surgery. She is requiring 4-5 L nasal cannula to maintain saturations -she does have some leg and arm pain and acknowledges that she is breathing shallowly because of this. She is hungry and would like to eat. Physical Exam Vital signs: Vital Signs 07/12/18 20:14 07/12/18 23:51 07/13/18 00:50 Temperature 97.8 F 97.3 F L Pulse Rate 67 70 67 Respiratory Rate 18 18 18 Blood Pressure 201/93 H 146/78 H 173/74 H Pulse Oximetry 93 L 93 L 92 L 07/13/18 00:55 07/13/18 04:50 07/13/18 08:00 Temperature 98.0 F 98.4 F Pulse Rate 75 86 Respiratory Rate 18 20 Blood Pressure 116/60 130/60 Pulse Oximetry 92 L 92 L 93 L 07/13/18 08:18 07/13/18 08:27 07/13/18 13:43 Temperature 98.4 F Pulse Rate 82 91 H Respiratory Rate 22 20 22 Blood Pressure 111/56 L Pulse Oximetry 91 L 91 L 07/13/18 14:00 07/13/18 14:15 07/13/18 14:30 Temperature Pulse Rate 87 90 83 Respiratory Rate 20 20 24 Blood Pressure 113/56 L 102/55 L 122/58 L Pulse Oximetry 91 L 91 L 90 L 07/13/18 16:50 07/13/18 17:08 07/13/18 17:15 Temperature 98.4 F Pulse Rate 80 Respiratory Rate 20 Blood Pressure 119/58 L Pulse Oximetry 93 L 92 L 94 L 07/13/18 17:24 Temperature Pulse Rate Respiratory Rate 22 Blood Pressure Pulse Oximetry Intake & Output 07/12/18 07/13/18 07/13/18 18:59 06:59 18:59 Intake Total 1000 / 1000 1634 / 1634 Output Total 75 / 75 Balance 1000 / 1000 1559 / 1559 Weight 127.1 kg Intake: IV 1000 / 1000 1334 / 1334 NS Inj 1,000 ML @ 100 mls/hr IV 1000 / 1000 334 / 334 .CONT .Q10H JJ Rx#:[id number] LR 1000 mL Inj 1,000 ML @ 30 1000 / 1000 mls/hr IV.SIG .Q24H JJ Rx#: [id number] Oral 0 / 0 Anesthesia Amount 300 / 300 Output: Estimated Blood Loss 75 / 75 Other: Date of Last Bowel Movement 07/12/18 07/12/18 # Bowel Movements 0 Weight On Admission 127.1 kg Narrative: GENERAL: Well-nourished, well-developed adult female in no obvious distress. SKIN: Warm and dry. HEAD: Ecchymosis around eyes and across bridge of nose. Slight deformation of bridge of nose. CARDIOVASCULAR: Regular rate and rhythm. RESPIRATORY: No accessory muscle use. Clear to auscultation. No breath sounds left upper. Diminished bases. GASTROINTESTINAL: Abdomen soft, non-tender, non-distended. Positive bowel sounds. MUSCULOSKELETAL: Left arm in splint and sling. Right leg in postsurgical dressing. All extremities warm and well-perfused. NEUROLOGICAL: Awake and alert. No obvious cranial nerve deficits. Motor grossly within normal limits. Normal speech. PSYCHIATRIC: Appropriate mood and affect; insight and judgment good. Results Labs CBC & Chem 7: 07/13/18 07:46 07/13/18 07:46 Imaging Imaging: Impressions Femur X-Ray 07/12/18 20:15 CONCLUSION: Spiral and comminuted fracture of the proximal shaft of the femur and displaced fracture of the lesser trochanter. Head CT 07/12/18 20:15 CONCLUSION: No acute intracranial injury . Pelvis X-Ray 07/12/18 20:15 CONCLUSION: Proximal right femoral fractures. The bony pelvic ring is intact. Shoulder X-Ray 07/12/18 20:15 CONCLUSION: 2-part fracture of the proximal left humerus. Face CT 07/12/18 20:19 CONCLUSION: Nasal bone and nasal septal fractures. Chest X-Ray 07/13/18 00:00 CONCLUSION: Pulmonary venous congestion. Assessment and Plan Plan 67-year-old female with past medical history significant for coronary artery disease status post stent placement, hypertension, hyperlipidemia, COPD on 2 L nasal cannula as needed, history of lung cancer and osteoarthritis presents to the emergency department after suffering a mechanical fall. Femur/hip fracture X-ray significant for spiral and comminuted fracture of the proximal shaft of the femur and displaced fracture of the lesser trochanter Orthopedic surgery consulted, appreciate assistance S/P IM nail 07/13/18 -PT ordered Left humerus fracture X-ray shows 2 part fracture of the proximal left humerus Orthopedic surgery consulted as above -Nonoperative treatment. Maintain sling -Continue pain management Nasal bone fracture -CT reviewed by Dr. Gonzalez; no intervention indicated at this time. Recommends outpatient follow-up. Pulmonary edema -Fluid overload; stop IVF fluid -Lasix 40 mg IV now and repeat in a.m. -Monitor kidney function COPD -Patient uses 2 L supplemental oxygen as needed at home -Duo nebs -Maintain oxygen saturations between 88-92% Coronary artery diseasehypertension/hyperlipidemia -Continue home medications DVT prophylaxis: Per ortho Discharge planning: TBD Progress Note: Quality VTE Deep Vein Thrombosis/Pulmonary Embolism Present on Admission: No
--- NOTE | 2018-07-13 19:42 | XR ---
EXAM DATE: 07/13/2018 7:32 PM EST AGE/SEX: 67 years / Female INDICATIONS: Right femur troch nail. CLINICAL DATA: This is the patient's initial encounter. Patient reports that signs and symptoms have been present for 1 day and indicates a pain score of Nonresponsive. MEDICAL/SURGICAL HISTORY: Non-responsive. Non-responsive. COMPARISON: [facility] [place], FEMUR RIGHT 2V, 07/12/2018. . FINDINGS: 6 images from the OR have been submitted. There is a long harjeet seen through the femur. There is also a shorter harjeet seen through the femoral neck and head. The hardware is well placed. The previously seen proximal femoral shaft fracture has been successfully reduced. CONCLUSION: Successful ORIF. Electronically signed by: Alen Siegel MD Board Certified Radiologist 07/13/2018 7:41 PM EST
[2018-07-13] MEDS: buPROPion 150 MG XL 24 HR Tablet PO SCH (22:28)
[2018-07-14] MEDS ORDERED: Enoxaparin Inj 30 MG/0.3 ML Syringe SQ SCH (02:00)
[2018-07-14] MEDS: Morphine Inj 4 MG/ML Vial IV.PUSH PRN ×3 (04:39→17:00)
[2018-07-14 06:18] LABS: Baso % (Auto) 0.2 % (0.0-2.0); Hematocrit 36.9 % (35.0-46.0); Hemoglobin 12.3 gm/dL (11.6-15.3); Lymph # (Auto) 0.9 th/mm3 (1.0-4.8); Lymph % (Auto) 6.8 % (9.0-44.0); Mean Corpuscular HGB Conc 33.3 % (32.0-36.0); Mean Corpuscular Hemoglobin 29.3 pg (27.0-34.0); Mean Platelet Volume 8.3 fL (7.0-11.0); Mono # (Auto) 1.4 th/mm3 (0.0-0.9); Mono % (Auto) 10.3 % (0.0-8.0); Neut # (Auto) 11.4 th/mm3 (1.8-7.7); Neut % (Auto) 82.7 % (16.0-70.0); Platelet Count 222 th/mm3 (150-450); White Blood Count 13.8 th/mm3 (4.0-11.0)
[2018-07-14 06:56] LABS: Calcium 7.8 mg/dL (8.5-10.1); Carbon Dioxide 32.6 meq/L (21.0-32.0); Magnesium 2.4 mg/dL (1.5-2.5); Potassium 4.3 meq/L (3.5-5.1)
--- NOTE | 2018-07-14 07:05 | P.PNOP ---
Subjective Interval history: s/p left proximal humerus fx POD 1 s/p IMN right subtroch femur doing well. states increased pain in the hip and the shoulder. but overall states its controlled Physical Exam Vital signs: Vital Signs 07/13/18 08:00 07/13/18 08:18 07/13/18 08:27 Temperature 98.4 F Pulse Rate 86 82 Respiratory Rate 20 22 20 Blood Pressure 130/60 Pulse Oximetry 93 L 91 L 07/13/18 13:43 07/13/18 14:00 07/13/18 14:15 Temperature 98.4 F Pulse Rate 91 H 87 90 Respiratory Rate 22 20 20 Blood Pressure 111/56 L 113/56 L 102/55 L Pulse Oximetry 91 L 91 L 91 L 07/13/18 14:30 07/13/18 16:15 07/13/18 16:50 Temperature 98.2 F 98.4 F Pulse Rate 83 79 80 Respiratory Rate 24 20 20 Blood Pressure 122/58 L 128/64 119/58 L Pulse Oximetry 90 L 92 L 93 L 07/13/18 17:08 07/13/18 17:15 07/13/18 17:24 Temperature Pulse Rate Respiratory Rate 22 Blood Pressure Pulse Oximetry 92 L 94 L 07/13/18 17:44 07/13/18 19:16 07/13/18 21:52 Temperature 99.1 F Pulse Rate 80 78 Respiratory Rate 19 16 Blood Pressure 120/58 L Pulse Oximetry 93 L 92 L 07/13/18 23:46 07/14/18 03:57 07/14/18 04:36 Temperature 98.6 F 98.2 F Pulse Rate 95 H 76 Respiratory Rate 19 18 Blood Pressure 120/56 L 106/57 L Pulse Oximetry 88 L 96 97 Intake & Output 07/13/18 07/14/18 07/14/18 18:59 06:59 18:59 Intake Total 1634 / 1634 720 / 720 Output Total 375 / 375 1400 / 1400 Balance 1259 / 1259 -680 / -680 Weight 127.1 kg Intake: IV 1334 / 1334 NS Inj 1,000 ML @ 100 mls/hr IV 334 / 334 .CONT .Q10H JJ Rx#:[id number] LR 1000 mL Inj 1,000 ML @ 30 1000 / 1000 mls/hr IV.SIG .Q24H JJ Rx#: [id number] Oral 720 / 720 Anesthesia Amount 300 / 300 Output: Urine 300 / 300 1000 / 1000 Estimated Blood Loss 75 / 75 Urine Amount (Catheter) 400 / 400 Female External 400 / 400 Other: Date of Last Bowel Movement 07/12/18 # Bowel Movements 0 Narrative: LUE: +sling. full sensation to median/ulnar nerve. full movement of fingers. + sling RLE: dressings clean and dry. itnact. nvi - Urinary Catheter Management Female External Cath placed during this visit: no Results - Labs CBC & Chem 7: 07/14/18 05:59 07/14/18 05:59 Laboratory Results - last 24 hr 07/13/18 07/13/18 07/13/18 07:46 07:46 07:46 WBC 14.6 H RBC 4.64 Hgb 14.0 Hct 41.1 MCV 88.5 MCH 30.2 MCHC 34.1 RDW 13.8 Plt Count 242 MPV 8.3 Neut % (Auto) 89.7 H Lymph % (Auto) 4.0 L Boundary % (Auto) 6.1 Eos % (Auto) 0.0 Baso % (Auto) 0.2 Neut # (Auto) 13.1 H Lymph # (Auto) 0.6 L Boundary # (Auto) 0.9 Eos # (Auto) 0.0 Baso # (Auto) 0.0 WBC Differential . Differential Comment Auto diff final Sodium 140 Potassium 4.4 Chloride 104 Carbon Dioxide 30.0 Anion Gap 6 BUN 16 Creatinine 0.86 Estimated GFR 66 L Random Glucose 139 H Calcium 8.2 L Magnesium Blood Type O Negative Blood Type Recheck Required Antibody Screen Negative 07/14/18 07/14/18 05:59 05:59 WBC 13.8 H RBC 4.20 Hgb 12.3 Hct 36.9 MCV 88.0 MCH 29.3 MCHC 33.3 RDW 14.0 Plt Count 222 MPV 8.3 Neut % (Auto) 82.7 H Lymph % (Auto) 6.8 L Boundary % (Auto) 10.3 H Eos % (Auto) 0.0 Baso % (Auto) 0.2 Neut # (Auto) 11.4 H Lymph # (Auto) 0.9 L Boundary # (Auto) 1.4 H Eos # (Auto) 0.0 Baso # (Auto) 0.0 WBC Differential . Differential Comment Auto diff final Sodium 139 Potassium 4.3 Chloride 103 Carbon Dioxide 32.6 H Anion Gap 3 L BUN 17 Creatinine 0.76 Estimated GFR 76 L Random Glucose 141 H Calcium 7.8 L Magnesium 2.4 Blood Type Blood Type Recheck Antibody Screen - Imaging Impressions Chest X-Ray 07/13/18 00:00 CONCLUSION: Pulmonary venous congestion. Femur X-Ray 07/13/18 00:00 CONCLUSION: Successful ORIF. Assessment and Plan - Assessment and Plan Right subtrochanteric femur fracture status post IM nail POD #1 Physical therapy 50% weightbearing on the right lower extremity Begin daily dressing changes POD 2 with Xeroform and Primapore. If significant drainage use Xeroform 4 x 4's ABD and paper tape. DVT prophylaxis with xarelto Left proximal humerus fracture Nonoperative treatment at this time. She will continue to remain in sling and swath at all times. No range of motion We will re-x-ray in 7-14 days to reevaluate continued alignment of the fracture Lovenox while in the hospital for DVT prophylaxis then convert to Xarelto at discharge Incentive spirometry SCDs and JAZ gonzalez Case management for rehab placement [place] and Xarelto are printed and on chart Follow-up appointment with Dr. Lee or PA in 2 weeks CM for SNF placement [facility] Prescription Drug Monitoring Database has been queried and verified prior to prescribing the controlled substance. Acute pain exception. This patient has normal, predicted, physiological, and time limited response to an adverse mechanical stimulus associated with surgery, trauma, or acute illness as described in my notes. There is a lack of alternative treatment options other than to include the prescribed narcotic treatment for this condition.
[2018-07-14] MEDS: Gabapentin 100 MG Capsule PO SCH ×3 (08:31→17:21)
[2018-07-14] MEDS: Calcium/Vitamin D 250/125 MG Tablet PO SCH ×3 (08:31→17:21)
[2018-07-14] MEDS: Senna/Docusate Sodium 8.6/50 MG Tablet PO SCH ×2 (08:31→20:24)
[2018-07-14] MEDS: FLUoxetine 20 MG Capsule PO SCH (08:32)
--- NOTE | 2018-07-14 16:55 | P.PNIM ---
Subjective Interval history: Seen lying in bed. She tells me that her breathing is better. Has been peeing a lot since receiving the Lasix. She tells me that she does use oxygen at home as needed typically 2-3 L. Whenever she has to do something without oxygen such as taking out the trash she becomes very short of breath and saturations will drop into the low 80s. It takes her some time to catch up after that. She says her sats are typically between 92 and 96 at home. She did have a slight panic attack while attempting physical therapy today. She gets very short of breath and then she becomes fearful of pain and this causes the panic attack. Pain is currently well controlled. Physical Exam Vital signs: Vital Signs 07/13/18 16:50 07/13/18 17:08 07/13/18 17:15 Temperature 98.4 F Pulse Rate 80 Respiratory Rate 20 Blood Pressure 119/58 L Pulse Oximetry 93 L 92 L 94 L 07/13/18 17:24 07/13/18 17:44 07/13/18 19:16 Temperature 99.1 F Pulse Rate 80 Respiratory Rate 22 19 Blood Pressure 120/58 L Pulse Oximetry 93 L 92 L 07/13/18 19:45 07/13/18 21:45 07/13/18 21:52 Temperature Pulse Rate 78 Respiratory Rate 18 16 Blood Pressure Pulse Oximetry 93 L 07/13/18 23:46 07/14/18 03:57 07/14/18 04:36 Temperature 98.6 F 98.2 F Pulse Rate 95 H 76 Respiratory Rate 19 18 Blood Pressure 120/56 L 106/57 L Pulse Oximetry 88 L 96 97 07/14/18 06:00 07/14/18 08:00 07/14/18 12:00 Temperature 98.7 F 98.2 F Pulse Rate 74 73 Respiratory Rate 18 18 Blood Pressure 122/59 L 107/57 L Pulse Oximetry 95 96 94 L 07/14/18 16:00 07/14/18 16:11 Temperature 98 F Pulse Rate 78 77 Respiratory Rate 20 18 Blood Pressure 97/50 L Pulse Oximetry 95 Intake & Output 07/13/18 07/14/18 07/14/18 18:59 06:59 18:59 Intake Total 1634 / 1634 720 / 720 720 / 720 Output Total 375 / 375 1400 / 1400 Balance 1259 / 1259 -680 / -680 720 / 720 Weight 127.1 kg Intake: IV 1334 / 1334 NS Inj 1,000 ML @ 100 mls/hr IV 334 / 334 .CONT .Q10H JJ Rx#:[id number] LR 1000 mL Inj 1,000 ML @ 30 1000 / 1000 mls/hr IV.SIG .Q24H JJ Rx#: [id number] Oral 720 / 720 720 / 720 Anesthesia Amount 300 / 300 Output: Urine 300 / 300 1000 / 1000 Estimated Blood Loss 75 / 75 Urine Amount (Catheter) 400 / 400 Female External 400 / 400 Other: Date of Last Bowel Movement 07/12/18 07/12/18 # Bowel Movements 0 Narrative: GENERAL: Well-nourished, well-developed adult female in no obvious distress. SKIN: Warm and dry. HEAD: Ecchymosis around eyes and across bridge of nose. Slight deformation of bridge of nose. CARDIOVASCULAR: Regular rate and rhythm. RESPIRATORY: No accessory muscle use. Clear to auscultation. No breath sounds left upper. Diminished bases. GASTROINTESTINAL: Abdomen soft, non-tender, non-distended. Positive bowel sounds. MUSCULOSKELETAL: Left arm in splint and sling. Right leg in postsurgical dressing. All extremities warm and well-perfused. NEUROLOGICAL: Awake and alert. No obvious cranial nerve deficits. Motor grossly within normal limits. Normal speech. PSYCHIATRIC: Appropriate mood and affect; insight and judgment good. Urinary Catheter Management Female External: Cath placed during this visit: no Results Labs CBC & Chem 7: 07/14/18 05:59 07/14/18 05:59 Imaging Imaging: Impressions Femur X-Ray 07/13/18 00:00 CONCLUSION: Successful ORIF. Assessment and Plan Plan 67-year-old female with past medical history significant for coronary artery disease status post stent placement, hypertension, hyperlipidemia, COPD on 2 L nasal cannula as needed, history of lung cancer and osteoarthritis presents to the emergency department after suffering a mechanical fall. Femur/hip fracture X-ray significant for spiral and comminuted fracture of the proximal shaft of the femur and displaced fracture of the lesser trochanter Orthopedic surgery consulted, appreciate assistance S/P IM nail 07/13/18 -PT ordered; p.o. Ativan ordered -give prior to PT to avoid panic attacks. Left humerus fracture X-ray shows 2 part fracture of the proximal left humerus -Orthopedic surgery recommends Nonoperative treatment. Maintain sling -Continue pain management; add Flexeril for muscle spasm Nasal bone fracture -CT reviewed by Dr. Gonzalez; no intervention indicated at this time. Recommends outpatient follow-up. Pulmonary edema -Fluid overload; stop IVF fluid -Lasix 40 mg IV -Monitor kidney function; stable COPD -Patient uses 2 L supplemental oxygen as needed at home -Duo nebs -Titrate O2 to maintain saturations between 92-96% Coronary artery diseasehypertension/hyperlipidemia -Continue home medications DVT prophylaxis: Per ortho Discharge planning: Will need rehab; appreciate case management assistance with placement Progress Note: Quality VTE Deep Vein Thrombosis/Pulmonary Embolism Present on Admission: No
[2018-07-14] MEDS: buPROPion 150 MG XL 24 HR Tablet PO SCH (20:23)
--- NOTE | 2018-07-15 06:38 | P.PNOP ---
Subjective Interval history: States the pain is improved. Has significant difficulty getting out of bed with partial weightbearing to the right lower extremity and nonweightbearing on the left upper extremity. Physical Exam Vital signs: Vital Signs 07/14/18 08:00 07/14/18 12:00 07/14/18 16:00 Temperature 98.7 F 98.2 F 98 F Pulse Rate 74 73 78 Respiratory Rate 18 18 20 Blood Pressure 122/59 L 107/57 L 97/50 L Pulse Oximetry 96 94 L 95 07/14/18 16:11 07/14/18 17:02 07/14/18 19:36 Temperature 98.4 F Pulse Rate 77 73 Respiratory Rate 18 20 18 Blood Pressure 97/51 L Pulse Oximetry 96 07/14/18 20:19 07/14/18 20:55 07/15/18 01:42 Temperature 98 F Pulse Rate 85 73 Respiratory Rate 18 18 Blood Pressure 102/53 L Pulse Oximetry 96 92 L 95 Intake & Output 07/14/18 07/14/18 07/15/18 06:59 18:59 06:59 Intake Total 720 / 720 1200 / 1200 Output Total 1400 / 1400 400 / 400 Balance -680 / -680 800 / 800 Weight 127.1 kg Intake: Oral 720 / 720 1200 / 1200 Output: Urine 1000 / 1000 400 / 400 Urine Amount (Catheter) 400 / 400 Female External 400 / 400 Other: Date of Last Bowel Movement 07/12/18 07/12/18 # Bowel Movements 0 Narrative: Left upper extremity: Sling and swath in place. Pain to palpation of her proximal humerus. Distally intact sensation with full extension and flexion of all fingers. Good capillary refills and distal pulses Right lower extremity: Clean dry dressings intact. Moderate swelling. Distally intact sensation with active dorsiflexion plantar flexion of foot. - Urinary Catheter Management Female External Cath placed during this visit: no Results - Labs CBC & Chem 7: 07/14/18 05:59 07/14/18 05:59 Laboratory Results - last 24 hr 07/14/18 05:59 Sodium 139 Potassium 4.3 Chloride 103 Carbon Dioxide 32.6 H Anion Gap 3 L BUN 17 Creatinine 0.76 Estimated GFR 76 L Random Glucose 141 H Calcium 7.8 L Magnesium 2.4 Assessment and Plan - Assessment and Plan Right subtrochanteric femur fracture status post IM nail POD #2 Physical therapy 50% weightbearing on the right lower extremity Begin daily dressing changes POD 2 with Xeroform and Primapore. If significant drainage use Xeroform 4 x 4's ABD and paper tape. DVT prophylaxis with xarelto Left proximal humerus fracture Nonoperative treatment at this time. She will continue to remain in sling and swath at all times. No range of motion We will re-x-ray in 7-14 days to reevaluate continued alignment of the fracture Lovenox while in the hospital for DVT prophylaxis then convert to Xarelto at discharge Incentive spirometry SCDs and JAZ gonzalez Case management for rehab placement [place] and Xarelto are printed and on chart Follow-up appointment with Dr. Lee or PA in 2 weeks CM for SNF placement [place] Prescription Drug Monitoring Database has been queried and verified prior to prescribing the controlled substance. Acute pain exception. This patient has normal, predicted, physiological, and time limited response to an adverse mechanical stimulus associated with surgery, trauma, or acute illness as described in my notes. There is a lack of alternative treatment options other than to include the prescribed narcotic treatment for this condition.
[2018-07-15] MEDS: buPROPion 150 MG 12 HR Tablet PO SCH ×2 (09:21→21:17)
[2018-07-15] MEDS: Calcium/Vitamin D 250/125 MG Tablet PO SCH ×3 (09:21→18:22)
[2018-07-15] MEDS: Gabapentin 100 MG Capsule PO SCH ×3 (09:21→18:22)
[2018-07-15] MEDS: FLUoxetine 20 MG Capsule PO SCH (09:21)
[2018-07-15] MEDS: Senna/Docusate Sodium 8.6/50 MG Tablet PO SCH ×2 (09:23→21:18)
[2018-07-15] MEDS: LORazepam 0.5 MG Tablet PO PRN (12:55)
--- NOTE | 2018-07-15 15:55 | P.PNIM ---
Subjective Interval history: Patient seen sitting up in chair. She did better today with physical therapy when she was premedicated. Still very painful and unstable per her report. Breathing is better except for her sinuses remain clogged. Physical Exam Vital signs: Vital Signs 07/14/18 16:00 07/14/18 16:11 07/14/18 17:02 Temperature 98 F Pulse Rate 78 77 Respiratory Rate 20 18 20 Blood Pressure 97/50 L Pulse Oximetry 95 07/14/18 19:36 07/14/18 20:19 07/14/18 20:55 Temperature 98.4 F Pulse Rate 73 85 Respiratory Rate 18 18 Blood Pressure 97/51 L Pulse Oximetry 96 96 92 L 07/15/18 01:42 07/15/18 05:22 07/15/18 08:00 Temperature 98 F 98 F 98.1 F Pulse Rate 73 72 78 Respiratory Rate 18 17 22 Blood Pressure 102/53 L 109/57 L 129/61 Pulse Oximetry 95 95 91 L 07/15/18 09:29 07/15/18 13:43 Temperature Pulse Rate 72 72 Respiratory Rate 18 18 Blood Pressure Pulse Oximetry 95 Intake & Output 07/14/18 07/15/18 07/15/18 18:59 06:59 18:59 Intake Total 1200 / 1200 Output Total 400 / 400 Balance 800 / 800 Intake: Oral 1200 / 1200 Output: Urine 400 / 400 Other: Date of Last Bowel Movement 07/12/18 Narrative: GENERAL: Well-nourished, well-developed adult female in no obvious distress. SKIN: Warm and dry. HEAD: Ecchymosis around eyes and across bridge of nose. Slight deformation of bridge of nose. CARDIOVASCULAR: Regular rate and rhythm. RESPIRATORY: No accessory muscle use. Clear to auscultation. No breath sounds left upper. Diminished bases. GASTROINTESTINAL: Abdomen soft, non-tender, non-distended. Positive bowel sounds. MUSCULOSKELETAL: Left arm in splint and sling. Right leg in postsurgical dressing. All extremities warm and well-perfused. NEUROLOGICAL: Awake and alert. No obvious cranial nerve deficits. Motor grossly within normal limits. Normal speech. PSYCHIATRIC: Appropriate mood and affect; insight and judgment good. Urinary Catheter Management Female External: Cath placed during this visit: no Results Labs CBC & Chem 7: 07/14/18 05:59 07/14/18 05:59 Assessment and Plan Plan 67-year-old female with past medical history significant for coronary artery disease status post stent placement, hypertension, hyperlipidemia, COPD on 2 L nasal cannula as needed, history of lung cancer and osteoarthritis presents to the emergency department after suffering a mechanical fall. Femur/hip fracture X-ray significant for spiral and comminuted fracture of the proximal shaft of the femur and displaced fracture of the lesser trochanter Orthopedic surgery consulted, appreciate assistance S/P IM nail 07/13/18 -PT ordered; p.o. Ativan ordered -give prior to PT to avoid panic attacks. Left humerus fracture X-ray shows 2 part fracture of the proximal left humerus -Orthopedic surgery recommends Nonoperative treatment. Maintain sling -Continue pain management; add Flexeril for muscle spasm Nasal bone fracture -CT reviewed by Dr. Gonzalez; no intervention indicated at this time. Recommends outpatient follow-up. Pulmonary edema -Fluid overload; stop IVF fluid -Lasix 40 mg IV -continue -Monitor kidney function; stable COPD -Patient uses 2 L supplemental oxygen as needed at home -Duo nebs -Titrate O2 to maintain saturations between 92-96% Coronary artery diseasehypertension/hyperlipidemia -Continue home medications DVT prophylaxis: Per ortho Discharge planning: Will need rehab; appreciate case management assistance with placement Progress Note: Quality VTE Deep Vein Thrombosis/Pulmonary Embolism Present on Admission: No
[2018-07-15] MEDS: Morphine Inj 4 MG/ML Vial IV.PUSH PRN (22:26)
[2018-07-16 07:35] LABS: Anion Gap 4 meq/L (5-15); Blood Urea Nitrogen 20 mg/dL (7-18); Carbon Dioxide 35.8 meq/L (21.0-32.0); Chloride 98 meq/L (98-107); Glomerular Filtration Rate Greater Than 89 mL/min (>89); Glucose,Random 123 mg/dL (74-106); Potassium 4.1 meq/L (3.5-5.1); Sodium 138 meq/L (136-145)
[2018-07-16] MEDS: Senna/Docusate Sodium 8.6/50 MG Tablet PO SCH ×2 (09:03→20:00)
[2018-07-16] MEDS: FLUoxetine 20 MG Capsule PO SCH (09:03)
[2018-07-16] MEDS: Gabapentin 100 MG Capsule PO SCH ×3 (09:03→17:30)
[2018-07-16] MEDS: Calcium/Vitamin D 250/125 MG Tablet PO SCH ×3 (09:03→17:30)
[2018-07-16] MEDS: LORazepam 0.5 MG Tablet PO PRN (09:03)
[2018-07-16] MEDS: buPROPion 150 MG 12 HR Tablet PO SCH ×2 (09:03→20:00)
--- NOTE | 2018-07-16 10:48 | P.PNOP ---
Subjective Interval history: Progressing well with physical therapy is anticipating discharge to rehab today Physical Exam Vital signs: Vital Signs 07/15/18 12:00 07/15/18 13:43 07/15/18 16:00 Temperature 98.2 F 98.0 F Pulse Rate 85 72 82 Respiratory Rate 22 18 20 Blood Pressure 115/60 117/58 L Pulse Oximetry 92 L 94 L 07/15/18 19:50 07/15/18 21:15 07/15/18 21:35 Temperature 98.5 F Pulse Rate 82 82 Respiratory Rate 18 19 Blood Pressure 120/55 L Pulse Oximetry 92 L 94 L 90 L 07/15/18 23:59 07/16/18 08:00 07/16/18 09:06 Temperature 98.5 F 97.4 F L Pulse Rate 78 70 70 Respiratory Rate 17 22 20 Blood Pressure 126/60 115/55 L Pulse Oximetry 93 L 99 07/16/18 09:33 Temperature Pulse Rate Respiratory Rate 20 Blood Pressure Pulse Oximetry Intake & Output 07/15/18 07/16/18 07/16/18 18:59 06:59 18:59 Intake Total 750 / 750 320 / 320 Output Total 400 / 400 Balance 350 / 350 320 / 320 Weight 126.6 kg Intake: Oral 750 / 750 320 / 320 Output: Urine Amount (Catheter) 400 / 400 Female External 400 / 400 Other: # Incontinent Voids 2 # Urine Diapers 3 Date of Last Bowel Movement 07/12/18 07/12/18 07/12/18 # Bowel Movements 0 # Incontinent Bowel Movements 0 Narrative: Right lower extremity: Clean dry dressings intact. Intact sensation distally with good capillary refill with active dorsiflexion and plantarflexion of foot. Left upper extremity: Sling and swath in place. Pain to palpation of her proximal humerus. No pain with elbow or wrist palpation or motion. Distally she has intact sensation with good capillary refills. - Urinary Catheter Management Female External Cath placed during this visit: no Results - Labs CBC & Chem 7: 07/14/18 05:59 07/16/18 06:43 Laboratory Results - last 24 hr 07/16/18 06:43 Sodium 138 Potassium 4.1 Chloride 98 Carbon Dioxide 35.8 H Anion Gap 4 L BUN 20 H Creatinine 0.62 Estimated GFR Greater than 89 Random Glucose 123 H Calcium 8.0 L Assessment and Plan - Assessment and Plan Right subtrochanteric femur fracture status post IM nail POD #3 Physical therapy 50% weightbearing on the right lower extremity Daily dressing with Xeroform and Primapore. DVT prophylaxis with xarelto Left proximal humerus fracture Nonoperative treatment at this time. She will continue to remain in sling and swath at all times. No range of motion We will re-x-ray in 7-14 days to reevaluate continued alignment of the fracture Lovenox while in the hospital for DVT prophylaxis then convert to Xarelto at discharge Incentive spirometry SCDs and JAZ gonzalez Case management for rehab placement [place] and Xarelto are printed and on chart Follow-up appointment with Dr. Lee or PA in 2 weeks CM for SNF placement [employer] Prescription Drug Monitoring Database has been queried and verified prior to prescribing the controlled substance. Acute pain exception. This patient has normal, predicted, physiological, and time limited response to an adverse mechanical stimulus associated with surgery, trauma, or acute illness as described in my notes. There is a lack of alternative treatment options other than to include the prescribed narcotic treatment for this condition.
--- NOTE | 2018-07-16 14:52 | P.PNIM ---
Subjective Interval history: Patient is seen lying in bed. Reports that pain is controlled. Doing a little bit better moving around but still struggling some. Feels like breathing is back at baseline except for congestion and nose from injury. No new concerns or complaints. Physical Exam Vital signs: Vital Signs 07/15/18 16:00 07/15/18 19:50 07/15/18 21:15 Temperature 98.0 F 98.5 F Pulse Rate 82 82 Respiratory Rate 20 18 Blood Pressure 117/58 L 120/55 L Pulse Oximetry 94 L 92 L 94 L 07/15/18 21:35 07/15/18 23:59 07/16/18 08:00 Temperature 98.5 F 97.4 F L Pulse Rate 82 78 70 Respiratory Rate 19 17 22 Blood Pressure 126/60 115/55 L Pulse Oximetry 90 L 93 L 99 07/16/18 09:06 07/16/18 09:33 07/16/18 12:00 Temperature 97.5 F L Pulse Rate 70 74 Respiratory Rate 20 20 20 Blood Pressure 125/58 L Pulse Oximetry 97 07/16/18 12:35 07/16/18 12:57 Temperature Pulse Rate 70 Respiratory Rate 18 20 Blood Pressure Pulse Oximetry Intake & Output 07/15/18 07/16/18 07/16/18 18:59 06:59 18:59 Intake Total 750 / 750 320 / 320 Output Total 400 / 400 Balance 350 / 350 320 / 320 Weight 126.6 kg Intake: Oral 750 / 750 320 / 320 Output: Urine Amount (Catheter) 400 / 400 Female External 400 / 400 Other: # Incontinent Voids 2 # Urine Diapers 3 Date of Last Bowel Movement 07/12/18 07/12/18 07/12/18 # Bowel Movements 0 # Incontinent Bowel Movements 0 Narrative: GENERAL: Well-nourished, well-developed adult female in no obvious distress. SKIN: Warm and dry. HEAD: Ecchymosis around eyes and across bridge of nose. Slight deformation of bridge of nose. CARDIOVASCULAR: Regular rate and rhythm. RESPIRATORY: No accessory muscle use. Clear to auscultation. No breath sounds left upper. Diminished bases. GASTROINTESTINAL: Abdomen soft, non-tender, non-distended. Positive bowel sounds. MUSCULOSKELETAL: Left arm in splint and sling. Right leg in postsurgical dressing. All extremities warm and well-perfused. NEUROLOGICAL: Awake and alert. No obvious cranial nerve deficits. Motor grossly within normal limits. Normal speech. PSYCHIATRIC: Appropriate mood and affect; insight and judgment good. Urinary Catheter Management Female External: Cath placed during this visit: no Results Labs CBC & Chem 7: 07/14/18 05:59 07/16/18 06:43 Assessment and Plan Plan 67-year-old female with past medical history significant for coronary artery disease status post stent placement, hypertension, hyperlipidemia, COPD on 2 L nasal cannula as needed, history of lung cancer and osteoarthritis presents to the emergency department after suffering a mechanical fall. Femur/hip fracture X-ray significant for spiral and comminuted fracture of the proximal shaft of the femur and displaced fracture of the lesser trochanter Orthopedic surgery consulted, appreciate assistance S/P IM nail 07/13/18 -PT ordered; p.o. Ativan ordered -give prior to PT to avoid panic attacks. Left humerus fracture X-ray shows 2 part fracture of the proximal left humerus -Orthopedic surgery recommends Nonoperative treatment. Maintain sling -Continue pain management; add Flexeril for muscle spasm Nasal bone fracture -CT reviewed by Dr. Gonzalez; no intervention indicated at this time. Recommends outpatient follow-up. Pulmonary edema -Fluid overload; stop IVF fluid -Lasix 40 mg IV -changed to p.o. on 07/17 in anticipation of discharge -Monitor kidney function; stable COPD -Patient uses 2 L supplemental oxygen as needed at home -Duo nebs -Titrate O2 to maintain saturations between 92-96% Coronary artery diseasehypertension/hyperlipidemia -Continue home medications DVT prophylaxis: Lovenox while hospitalized. Change to Xarelto at discharge. Discharge planning: Rehab Auth pending; possibly tomorrow. Ortho has ordered [place] and Xarelto -Rx on chart. Progress Note: Quality VTE Deep Vein Thrombosis/Pulmonary Embolism Present on Admission: No
[2018-07-17] MEDS: Gabapentin 100 MG Capsule PO SCH ×3 (08:09→17:15)
[2018-07-17] MEDS: buPROPion 150 MG 12 HR Tablet PO SCH ×2 (08:09→20:26)
[2018-07-17] MEDS: Calcium/Vitamin D 250/125 MG Tablet PO SCH ×3 (08:09→17:15)
[2018-07-17] MEDS: Senna/Docusate Sodium 8.6/50 MG Tablet PO SCH ×2 (08:09→20:26)
[2018-07-17] MEDS: LORazepam 0.5 MG Tablet PO PRN (08:09)
[2018-07-17] MEDS: FLUoxetine 20 MG Capsule PO SCH (08:09)
[2018-07-17] MEDS ORDERED: Furosemide 40 MG Tablet PO SCH (09:00)
--- NOTE | 2018-07-17 11:34 | P.PNOP ---
Subjective Interval history: Resting in bed comfortably. She states that her left proximal humerus does continue to have increased pain today from yesterday Physical Exam Vital signs: Vital Signs 07/16/18 12:00 07/16/18 12:35 07/16/18 12:57 Temperature 97.5 F L Pulse Rate 74 70 Respiratory Rate 20 18 20 Blood Pressure 125/58 L Pulse Oximetry 97 07/16/18 16:00 07/16/18 16:54 07/16/18 20:00 Temperature 98.5 F 97.8 F Pulse Rate 81 88 Respiratory Rate 20 18 18 Blood Pressure 116/58 L 109/57 L Pulse Oximetry 96 95 07/16/18 23:18 07/17/18 03:53 07/17/18 08:00 Temperature 98.4 F 98.5 F 97.9 F Pulse Rate 78 77 72 Respiratory Rate 18 18 20 Blood Pressure 100/52 L 117/55 L 98/53 L Pulse Oximetry 95 95 93 L 07/17/18 08:39 07/17/18 08:57 Temperature Pulse Rate 75 Respiratory Rate 18 17 Blood Pressure Pulse Oximetry 93 L Intake & Output 07/16/18 07/17/18 07/17/18 18:59 06:59 18:59 Intake Total 480 / 480 960 / 960 Output Total 700 / 700 Balance 480 / 480 260 / 260 Weight 126.9 kg Intake: Oral 480 / 480 960 / 960 Output: Urine Amount (Catheter) 700 / 700 Female External 700 / 700 Other: # Voids 4 1 # Incontinent Voids 3 Date of Last Bowel Movement 07/12/18 07/12/18 # Bowel Movements 0 Narrative: Left upper extremity: Sling and swath in place. Skin is intact over the proximal humerus. She has no pain to palpation of the elbow wrist or fingers. Distally she has intact sensation with good capillary refills. Right lower extremity: Clean dry dressings intact. Moderate tenderness with range of motion of the hip. Knee range of motion with mild tenderness. Distally intact sensation good capillary refills with active dorsiflexion plantar flexion of foot - Urinary Catheter Management Female External Cath placed during this visit: no Results - Labs CBC & Chem 7: 07/14/18 05:59 07/16/18 06:43 Assessment and Plan - Assessment and Plan Right subtrochanteric femur fracture status post IM nail POD #4 Physical therapy 50% weightbearing on the right lower extremity Daily dressing with Xeroform and Primapore. DVT prophylaxis with xarelto Left proximal humerus fracture Nonoperative treatment at this time. She will continue to remain in sling and swath at all times. No range of motion We will re-x-ray in 7-14 days to reevaluate continued alignment of the fracture Lovenox while in the hospital for DVT prophylaxis then convert to Xarelto at discharge Incentive spirometry SCDs and JAZ gonzalez Case management for rehab placement [place] and Xarelto are printed and on chart Follow-up appointment with Dr. Lee or SAUL in 2 weeks CM for SNF placement [employer] Prescription Drug Monitoring Database has been queried and verified prior to prescribing the controlled substance. Acute pain exception. This patient has normal, predicted, physiological, and time limited response to an adverse mechanical stimulus associated with surgery, trauma, or acute illness as described in my notes. There is a lack of alternative treatment options other than to include the prescribed narcotic treatment for this condition.
--- NOTE | 2018-07-17 14:31 | P.PNIM ---
Subjective Interval history: f/u for Physical Exam Vital signs: Vital Signs 07/16/18 16:00 07/16/18 16:54 07/16/18 20:00 Temperature 98.5 F 97.8 F Pulse Rate 81 88 Respiratory Rate 20 18 18 Blood Pressure 116/58 L 109/57 L Pulse Oximetry 96 95 07/16/18 23:18 07/17/18 03:53 07/17/18 08:00 Temperature 98.4 F 98.5 F 97.9 F Pulse Rate 78 77 72 Respiratory Rate 18 18 20 Blood Pressure 100/52 L 117/55 L 98/53 L Pulse Oximetry 95 95 93 L 07/17/18 08:39 07/17/18 08:57 07/17/18 12:00 Temperature 98.2 F Pulse Rate 75 85 Respiratory Rate 18 17 22 Blood Pressure 86/51 L Pulse Oximetry 93 L 92 L 07/17/18 12:38 07/17/18 12:40 Temperature Pulse Rate 78 Respiratory Rate 18 20 Blood Pressure Pulse Oximetry Intake & Output 07/16/18 07/17/18 07/17/18 18:59 06:59 18:59 Intake Total 480 / 480 960 / 960 Output Total 700 / 700 Balance 480 / 480 260 / 260 Weight 126.9 kg Intake: Oral 480 / 480 960 / 960 Output: Urine Amount (Catheter) 700 / 700 Female External 700 / 700 Other: # Voids 4 1 # Incontinent Voids 3 Date of Last Bowel Movement 07/12/18 07/12/18 # Bowel Movements 0 Urinary Catheter Management Female External: Cath placed during this visit: no Results Labs CBC & Chem 7: 07/14/18 05:59 07/16/18 06:43 Progress Note: Quality VTE Deep Vein Thrombosis/Pulmonary Embolism Present on Admission: No
--- NOTE | 2018-07-17 14:44 | P.DS ---
DS: Providers Date of admission: 07/12/18 22:16 Primary care physician: UNKNOWN Consults: 07/12/18 22:48 HUB Only Consult Order Routine Consulting Provider: Prasanna Mims 07/12/18 23:17 Consult to Orthopedic Surgery Routine Consulting Provider: Quin Champagne Reason for Consultation: Viral and comminuted fracture of the proximal shaft of the right femur and displaced fracture of the lesser trochanter. 2 part fracture of the proximal left humerus. Notified:: Service Spoke with:: igor Date Notified:: 07/12/18 Time Notified:: 23:23 Ordering Provider: ADELIA 07/15/18 10:00 HUB Only Consult Order Routine Consulting Provider: [facility] Brief History from admission: 67-year-old female with past medical history significant for coronary artery disease status post stent placement, hypertension, hyperlipidemia, COPD on 2 L nasal cannula as needed, history of lung cancer and osteoarthritis presents to the emergency department after suffering a mechanical fall. The patient reports that she slipped on 1 of her slippers and landed on the tile floor. She hit her nose but denies any other head trauma or loss of consciousness. She denies any chest pain or shortness of breath. No nausea/vomiting/diarrhea. No abdominal pain. No focal neurologic deficits. No fever/chills. Patient update on day of discharge: 67-year-old female with past medical history significant for coronary artery disease status post stent placement, hypertension, hyperlipidemia, COPD on 2 L nasal cannula as needed, history of lung cancer and osteoarthritis presents to the emergency department after suffering a mechanical fall. Pt had Femur/hip fracture, X-ray significant for spiral and comminuted fracture of the proximal shaft of the femur and displaced fracture of the lesser trochanter. Orthopedic surgery consulted, S/P IM nail . Pt also had Left humerus fracture, X-ray shows 2 part fracture of the proximal left humerus. -Orthopedic surgery recommends Nonoperative treatment. Maintain sling and Continue pain management with Flexeril for muscle spasm. Pt also had Nasal bone fracture, -CT reviewed by Dr. Gonzalez; no intervention indicated at this time. Recommends outpatient follow-up. On th ecourse of hospitalizations pt had Pulmonary edema/Fluid overload. Started on Lasix and was changed to p.o. in anticipation of discharge, Monitor kidney function; stable. Pt had hx of HTn, with low BP reading today, most likely due to addition of lasix, decrease losartan dose and continue metoprolol. DVT prophylaxis: Lovenox while hospitalized. Change to Xarelto at discharge. DS: Summary 67-year-old female with past medical history significant for coronary artery disease status post stent placement, hypertension, hyperlipidemia, COPD on 2 L nasal cannula as needed, history of lung cancer and osteoarthritis presents to the emergency department after suffering a mechanical fall. Femur/hip fracture X-ray significant for spiral and comminuted fracture of the proximal shaft of the femur and displaced fracture of the lesser trochanter Orthopedic surgery consulted, appreciate assistance S/P IM nail 07/13/18 -PT ordered; p.o. Ativan ordered -give prior to PT to avoid panic attacks. Left humerus fracture X-ray shows 2 part fracture of the proximal left humerus -Orthopedic surgery recommends Nonoperative treatment. Maintain sling -Continue pain management; add Flexeril for muscle spasm Nasal Bone Fx CT reviewed by Dr. Gonzalez; no intervention indicated at this time. Recommends outpatient follow-up. Pulmonary edema -Fluid overload; stop IVF fluid -decreae Lasix dose due to low BP -Monitor kidney function; stable COPD -Patient uses 2 L supplemental oxygen as needed at home -Duo nebs -Titrate O2 to maintain saturations between 92-96% Coronary artery disease Hypertension/hyperlipidemia BP low,likely due to lasix adjust medication accordingly -decrease losartan -Continue home medications DVT prophylaxis: Lovenox while hospitalized. Change to Xarelto at discharge. Time Spent with Patient Total time spent providing and/or coordinating discharge services: Greater than 30 minutes Quality: VTE Deep Vein Thrombosis/Pulmonary Embolism Present on Admission: No Exam Narrative Exam Narrative: GENERAL: well developed, well nourished, female sitting in the chair in no acute distress SKIN: Warm and dry. NECK: Trachea midline. No JVD. CARDIOVASCULAR: Regular rate and rhythm. RESPIRATORY: No accessory muscle use. Clear to auscultation. Breath sounds equal bilaterally. GASTROINTESTINAL: Abdomen soft, non-tender, nondistended. Hepatic and splenic margins not palpable. MUSCULOSKELETAL: Extremities without clubbing, cyanosis. Left LE with trace edema. Left UE on arm sling NEUROLOGICAL: Awake and alert and oriented x 3. No obvious cranial nerve deficits. GEneralized weakness, Moving all 4 extremities except Left UE and Left LE with limited ROM. Normal speech. PSYCHIATRIC: Appropriate mood and affect; insight and judgment normal. Results Impressions ITS Impressions Head CT 07/12/18 20:15 CONCLUSION: No acute intracranial injury . Pelvis X-Ray 07/12/18 20:15 CONCLUSION: Proximal right femoral fractures. The bony pelvic ring is intact. Shoulder X-Ray 07/12/18 20:15 CONCLUSION: 2-part fracture of the proximal left humerus. Face CT 07/12/18 20:19 CONCLUSION: Nasal bone and nasal septal fractures. Chest X-Ray 07/13/18 00:00 CONCLUSION: Pulmonary venous congestion. Femur X-Ray 07/13/18 00:00 CONCLUSION: Successful ORIF. Discharge Plan Discharge Disposition Patient Disposition: Discharge to SNF Discharge Order Discharge Orders: Discharge Order (Routine); Ordered 07/17/18 Ordered By: Desire Mabry Orthopedic Clear for Discharge (Routine); Ordered 07/16/18 Ordered By: Anthony Castillo Discharge Details Anticipated Discharge Date: 07/17/18 Discharge Comment: may Discharge to SNF after bowel movement and VS stable Physicians Team ED Provider: Rcih Pugh Primary Care Provider: UNKNOWN, Attending Provider: Earl Pillai Other Providers: Prasanna Mims ; Quin Champagne ; [facility] ; Tate Lee Rxs /Orders / Referrals /Forms Prescriptions: New hydrocodone-acetaminophen [[place]] 7.5-325 mg Tablet 1 tab PO Q4-6H PRN (Reason: Acute Pain) Qty: 42 RF: 0 rivaroxaban [Xarelto] 10 mg Tablet 10 mg PO DAILY Qty: 14 RF: 0 losartan 50 mg Tablet 50 mg PO QPM Qty: 30 RF: 0 sennosides-docusate sodium [Senna Plus] 8.6-50 mg Tablet 1 tab PO BID Qty: 60 RF: 0 cholecalciferol (vitamin D3) 5,000 unit Capsule 5,000 unit PO DAILY Qty: 30 RF: 0 furosemide 40 mg Tablet 20 mg PO DAILY Qty: 30 RF: 0 Continue gabapentin 100 mg Capsule 100 mg PO TID RF: 0 albuterol sulfate 0.63 mg/3 mL Solution For Nebulization 0.63 mg INHALATION QID RF: 0 aspirin 325 mg Tablet 325 mg PO DAILY RF: 0 fluoxetine [Prozac] 20 mg Capsule 20 mg PO DAILY RF: 0 bupropion HCl [Wellbutrin XL] 300 mg Tablet Extended Release 24 Hr 300 mg PO HS RF: 0 metoprolol succinate 50 mg Tablet Extended Release 24 Hr 50 mg PO QAM RF: 0 Discontinued ibuprofen [Advil] 200 mg Tablet 400 mg PO BID PRN (Reason: Pain) RF: 0 losartan 100 mg Tablet 100 mg PO QPM RF: 0 Ambulatory Orders / Order Sets / DME: Walker/Folding Prashanth (1 each) (Routine) Location: Determined by Patient Ordered By: Ian Mc Wheelchair (1 each) (Routine) Location: Determined by Patient Ordered By: Ian Mc Referrals: Tate Lee MD [Physician] - See Instructions (2 weeks) UNKNOWN, [Primary Care Provider] - See Instructions Discharge Instructions Patient Printed Instructions: Hydrocodone/Acetaminophen (By mouth), Arm Fracture in Adults (DC), ORIF of a Leg Fracture (DC), Fall Prevention (DC), Non Weight Bearing Activity (DC) Additional Instructions: PLEASE FILL AND TAKE MEDICATIONS PRESCRIBED. IN CASE OF EMERGENCY CALL 911 OR RETURN TO [facility] Right subtrochanteric femur fracture status post IM nail Physical therapy 50% weightbearing on the right lower extremity Daily dressing with Xeroform and Primapore. Left proximal humerus fracture Nonoperative treatment at this time. She will continue to remain in sling and swath at all times. No range of motion We will re-x-ray in 7-14 days to reevaluate continued alignment of the fracture Follow-up appointment with Dr. Lee or PA in 2 weeks [phone] Post Discharge Care Plan Care Plan Goals: Your Health Problems: Goals to Promote Your Health: * To prevent worsening of your condition * To maintain your health at the optimal level Directions to Meet Your Goals: * Take your medications as prescribed * Follow your dietary instruction * Follow activity as directed * Keep your appointments as scheduled * Take your immunizations and boosters as scheduled * If your symptoms worsen call your PCP * If no PCP go to Urgent Care or Emergency Room Smoking is dangerous to your health. Avoid second hand smoke. You may reach the 24-hour crisis hotline for domestic abuse at . Status ED Status: Left Department
[2018-07-17] MEDS ORDERED: Enoxaparin Inj 30 MG/0.3 ML Syringe SQ SCH (15:00)
[2018-07-17 20:53] VITALS: PULSE 76; RESP 16
[2018-07-17 21:41] VITALS: BP 114/59; TEMP 98.5; O2SAT 94
== END 2018-07-17 22:18 | DRG 481 ==
LOC: NEPE 20:07 → NEDA 22:16 → N06 07-13 00:50
PROVIDERS: ADMIT Family Medicine; ATTEND Family Medicine
CPT/HCPCS: 70450; 70486; 71010; 71045; 72170; 73030; 73552; 76000; 80048; 80053; 83735; 85025; 85610; 85730; 86850; 86900; 86901; 90774; 90775; 90784; 93005; 94150; 94640; 94664; 94665; 96374; 96375; 97110; 97163; 97530; 99285; C1713; C1776; C8952; J0690; J1100; J1580; J1650; J1940; J2270; J2370; J2405; J2704; J3010; J3370; J7030; J7050; J7120